=== PATIENT | female | born 1960 | race African-American/Black ===

== ENCOUNTER 2016-12-14 10:25 | Inpatient (IN) | payer OTHER ==
[~2016-12-14] VITALS: Ht 152.4 cm; Wt 74.0 kg
[~2016-12-14 10:25] MED LIST: AMLODIPINE BESYL5 MG PO; BENZTROPINE ME0.5 MG PO; CEFDINIR300 MG PO; COLACE100 MG PO; FENTANYL1 EAC5 TD; GLUCOPHAGE850 MG PO; HUMALOG MI100 UNIT/6 SC; HYDROCHLOROTHIA50 MG PO; INSULIN SYRING1 EA11 MC; INSULIN SYRING1 EA30 MC; LANTUS 10100 UNITS/ SC; LANTUS 10100 UNITS/ SQ; LISINOPRIL40 MG PO; LYRICA150 MG PO; METFORMIN HCL500 MG PO; MIRALAX17 GM PO; MOBIC15 MG PO; NOVOLIN N100 UNITS/ SC; SERTRALINE HCL50 MG PO; TRAZODONE HCL50 MG PO; VENLAFAXINE HCL75 M3 PO; ZOFRAN4 MG PO
[2016-12-14] MEDS ORDERED: ENDOCET 5-3251 EACH PO (12:45)
[2016-12-14] MEDS ORDERED: HYZAAR 100-21 TABLET PO (12:45)
[2016-12-14] MEDS ORDERED: LANTUS 10100 UNITS/ SC (12:46)
[2016-12-14 13:05] LABS: EOSINOPHIL COUNT 0.2 K/uL (0-0.3); IMMATURE GRANULOCYTE (%) 0.4 % (0.0-0.7); IMMATURE GRANULOCYTE COUNT 0.5 K/uL; LYMPHOCYTE COUNT 3.8 K/uL (1.0-2.8); MONOCYTE (%) 5.3 % (3-12); MONOCYTE COUNT 0.6 K/uL (0-0.8); NEUTROPHIL (%) 58.6 % (45-76); NEUTROPHIL COUNT 6.6 K/uL (1.8-6.4)
[2016-12-14 13:15] LABS: PROTHROMBIN TIME 10.6 (9.2-11.2)
[2016-12-14 13:37] LABS: HEMATOCRIT 38.1 % (36.0-46.0); MCH 25.4 PG (29.0-34.0); MCHC 32.3 G/DL (30.0-36.0); MCV 78.7 FL (83-99); PLAT.SUFFICIENCY DECREASED; PLATELET COUNT 148 K/uL (156-360); RBC DIS.WIDTH-CV 12.8 % (11.8-14.6); RBC DIS.WIDTH-SD 35.8 % (39-53); RED BLOOD COUNT 4.84 M/uL (3.80-5.20); USER ID SDF; WHITE BLOOD COUNT 11.3 K/uL (4.1-10.2)
[2016-12-14 13:48] LABS: ANION GAP 9 MEQ/L (2-14); CHLORIDE 105 MEQ/L (99-109); POTASSIUM 4.2 MEQ/L (3.7-5.4); SAMPLE HEMOLYSIS CHECK 0; SAMPLE ICTERIC CHECK 0; SAMPLE LIPEMIA CHECK 0; SODIUM 138 MEQ/L (136-147)
[2016-12-14 13:54] LABS: GFR ESTIMATE (CALCULATED) > 59 mL/min/; GLUCOSE 376 mg/dL (70-99); UREA NITROGEN (BUN) 26 mg/dL (9-23)
[2016-12-14 17:50] VITALS: BP 148/96
[2016-12-14 17:56] VITALS: BP 148/96
[2016-12-14] MEDS ORDERED: LANTUS 10100 UNITS/ SQ (18:02)
[2016-12-14 23:22] VITALS: BP 184/83
[2016-12-15 04:28] VITALS: BP 129/64
[2016-12-15 04:53] LABS: HEMATOCRIT 34.7 % (36.0-46.0); MCV 81.1 FL (83-99)
[2016-12-15 05:17] LABS: CHLORIDE 106 mEq/L (99-109); SODIUM 136 mEq/L (136-147)
[2016-12-15 05:18] LABS: GLUCOSE 248 mg/dL (70-99)
[2016-12-15 05:20] LABS: ANION GAP 8 MEQ/L (2-14)
[2016-12-15 05:22] LABS: GFR ESTIMATE (CALCULATED) > 59 mL/min/
[2016-12-15 05:23] LABS: UREA NITROGEN (BUN) 22 mg/dL (9-23)
[2016-12-15 07:51] VITALS: BP 95/52
[2016-12-15 16:39] VITALS: BP 107/55
[2016-12-15 23:12] VITALS: BP 103/52
[2016-12-16 07:13] LABS: HEMATOCRIT 36.3 % (36.0-46.0)
[2016-12-16 08:39] VITALS: BP 115/63
[2016-12-16] MEDS ORDERED: LOVENOX40 MG/0.4 SC (09:15)
[2016-12-16] MEDS ORDERED: OXYCODONE-APAP1 EACH PO (09:17)
[2016-12-16] MEDS ORDERED: LIDOCAINE700 MG TD (09:17)
[2016-12-16] MEDS ORDERED: ENDOCET 5-3251 EACH PO ×2 (09:24→09:26)
== END 2016-12-16 15:36 | DRG 494 ==
LOC: EME → EDBD 10:25 → EME 10:25 → 2SOUTH 14:04 → 3EAST 14:04 → 2SOUTH 14:04 → EME 14:12 → 3EAST 17:36
PROVIDERS: Emergency Medicine; Orthopaedic Surgery Sports Medicine
DX: S82.851A Displaced trimalleolar fracture of right lower leg, initial encounter for closed fracture (principal); W19.XXXA Unspecified fall, initial encounter; Y92.009 Unspecified place in unspecified non-institutional (private) residence as the place of occurrence of the external cause; E11.42 Type 2 diabetes mellitus with diabetic polyneuropathy; I10 Essential (primary) hypertension; E78.00 Pure hypercholesterolemia, unspecified; F41.9 Anxiety disorder, unspecified
CPT/HCPCS: 71010; 73590; 73600; 73610; 76000; 80048; 82306; 82948; 85014; 85018; 85025; 85610; 93005; 99281; 99285; C1713; G0378; G8987 GO CN; G8988 GO CK; J1170; J1650; J1815; J2250; J2270; J2405; J3010; S0020

== ENCOUNTER 2017-03-18 17:23 | Inpatient (IN) | payer OTHER ==
[~2017-03-18] VITALS: Ht 153.7 cm; Wt 66.8 kg
[~2017-03-18 17:23] MED LIST changes: +ENDOCET 5-3251 EACH PO; +HYZAAR 100-21 TABLET PO; +LIDOCAINE700 MG TD; +LOVENOX40 MG/0.4 SC; +OXYCODONE-APAP1 EACH PO
[2017-03-18 18:26] LABS: ADD MIUA? YES; BILIRUBIN NEGATIVE; BLOOD SMALL; COLOR YELLOW ((YELLOW)); GLUCOSE (STRIP) >=500; KETONES 20; LEUKOCYTES NEGATIVE; NITRITE NEGATIVE; PROTEIN (STRIP) >=500; SPECIFIC GRAVITY 1.025 (1.000-1.030); UROBILINOGEN 0.2 MG/DL (0.2-1.0)
[2017-03-18 18:41] LABS: CHLORIDE 102 mEq/L (99-109); HEMATOCRIT 37.2 % (36.0-46.0); MCH 25.6 PG (29.0-34.0); MCHC 32.8 G/DL (30.0-36.0); MCV 78.2 FL (83-99); MEAN PLAT.VOLUME 12.5 uM^3 (9.5-12.4); PLATELET COUNT 224 K/uL (156-360); POTASSIUM 3.7 mEq/L (3.7-5.4); RBC DIS.WIDTH-CV 14.2 % (11.8-14.6); RBC DIS.WIDTH-SD 40.1 % (39-53); RED BLOOD COUNT 4.76 M/uL (3.80-5.20); SODIUM 141 mEq/L (136-147)
[2017-03-18 18:42] LABS: BACTERIA NONE SEEN /HPF; EPITHELIAL CELLS RARE /HPF; MUCUS TRACE /LPF; RED BLOOD CELLS 15-20 /HPF (0-5); UCUL ADDED? NO; WHITE BLOOD CELLS 0-5 /HPF (0-5)
[2017-03-18 18:44] LABS: ANION GAP 19 MEQ/L (2-14)
[2017-03-18 18:45] LABS: TOTAL BILIRUBIN 0.5 mg/dL (0.0-1.0)
[2017-03-18 18:47] LABS: ALKALINE PHOSPHATASE 82 IU/L (3-129); GFR ESTIMATE (CALCULATED) 55 mL/min/
[2017-03-18 18:48] LABS: UREA NITROGEN (BUN) 25 mg/dL (9-23)
[2017-03-18 18:50] LABS: LIPASE 18 U/L (1.0-51.0)
[2017-03-18 18:53] LABS: TROP-I INTERPRETATION NEGATIVE; TROPONIN-I < 0.01 ng/mL (0.0-0.30)
[2017-03-18 18:57] LABS: QUANTITATIVE HCG < 4.0 MIU/ML
[2017-03-18 19:03] LABS: GLUCOSE 483 mg/dL (70-99)
[2017-03-18 19:43] LABS: BASE EXCESS 2.7 mEq/L (-3 to +3); BICARBONATE 25.9 mEq/L (22-26); CARBOXY HGB 1.8 % (0-5); COMMENTS - BLOOD GASES C+A+; FI02 21 %; METHEMOGLOBIN 1.4 % (0-1.5); O2 FLOW 0 L/MIN; PCO2 34 mm Hg (35-45); PO2 82 mm Hg (80-100); SITE LR; pH 7.49 (7.35-7.45)
[2017-03-18 20:02] LABS: INFLUENZA A VIRAL ANTIGEN NEGATIVE; INFLUENZA B VIRAL ANTIGEN NEGATIVE
[2017-03-18 22:18] LABS: POINT-OF-CARE METER ID UU13113702
[2017-03-19] VITALS (7 sets, daily range): BP systolic 159–197; BP diastolic 74–120
[2017-03-19 00:40] LABS: POINT-OF-CARE METER ID UU13113702
[2017-03-19 02:36] LABS: POINT-OF-CARE METER ID UU13113702
[2017-03-19 02:56] LABS: CHLORIDE 110 mEq/L (99-109); POTASSIUM 3.2 mEq/L (3.7-5.4); SODIUM 146 mEq/L (136-147)
[2017-03-19 02:59] LABS: ANION GAP 14 MEQ/L (2-14); GLUCOSE 196 mg/dL (70-99)
[2017-03-19 03:02] LABS: GFR ESTIMATE (CALCULATED) > 59 mL/min/
[2017-03-19 03:03] LABS: UREA NITROGEN (BUN) 21 mg/dL (9-23)
[2017-03-19 07:30] LABS: POINT-OF-CARE METER ID UU13113702
[2017-03-19] MEDS ORDERED: NORVASC10 MG PO (09:32)
[2017-03-19] MEDS ORDERED: OXYCODONE-ACET1 EACH PO (09:34)
[2017-03-19] MEDS ORDERED: FERROUS SULFAT325 MG PO (09:36)
[2017-03-19] MEDS ORDERED: GLUCOPHAGE500 MG PO (09:37)
[2017-03-19 15:09] LABS: AMPHETAMINES QUANT VALUE 0 NG/ML; BARBITUATES QUANT VALUE 0 NG/ML; BENZODIAZEPINES QUANT VALUE 0 NG/ML; BENZODIAZEPINES, URINE SCREEN Negative (200 ng/mL); MARIJUANA QUANT VALUE 0 NG/ML; OPIATES QUANTITATIVE VALUE 0 NG/ML; PHENCYCLIDINE QUANT VALUE 0 NG/ML
[2017-03-20] VITALS (11 sets, daily range): BP systolic 127–180; BP diastolic 70–94
[2017-03-20 06:27] LABS: POINT-OF-CARE METER ID UU14162508
[2017-03-20 07:58] LABS: HEMATOCRIT 34.1 % (36.0-46.0); MCV 81.4 FL (83-99); MEAN PLAT.VOLUME 12.3 uM^3 (9.5-12.4); PLATELET COUNT 218 K/uL (156-360); RBC DIS.WIDTH-CV 14.6 % (11.8-14.6); RBC DIS.WIDTH-SD 42.9 % (39-53); RED BLOOD COUNT 4.19 M/uL (3.80-5.20); WHITE BLOOD COUNT 14.7 K/uL (4.1-10.2)
[2017-03-20 08:09] LABS: CHLORIDE 112 mEq/L (99-109); POTASSIUM 3.5 mEq/L (3.7-5.4); SODIUM 142 mEq/L (136-147)
[2017-03-20 08:10] LABS: GLUCOSE 211 mg/dL (70-99)
[2017-03-20 08:12] LABS: ANION GAP 11 MEQ/L (2-14)
[2017-03-20 08:14] LABS: GFR ESTIMATE (CALCULATED) > 59 mL/min/
[2017-03-20 08:15] LABS: UREA NITROGEN (BUN) 20 mg/dL (9-23)
[2017-03-21] VITALS (7 sets, daily range): BP systolic 125–199; BP diastolic 68–110
[2017-03-22] VITALS (8 sets, daily range): BP systolic 123–204; BP diastolic 66–100
[2017-03-22 06:12] LABS: HEMATOCRIT 34.9 % (36.0-46.0); MCH 25.6 PG (29.0-34.0); MCHC 32.1 G/DL (30.0-36.0); MCV 79.9 FL (83-99); MEAN PLAT.VOLUME 12.8 uM^3 (9.5-12.4); PLATELET COUNT 209 K/uL (156-360); RBC DIS.WIDTH-CV 13.8 % (11.8-14.6); RBC DIS.WIDTH-SD 40.3 % (39-53); RED BLOOD COUNT 4.37 M/uL (3.80-5.20); WHITE BLOOD COUNT 11.1 K/uL (4.1-10.2)
[2017-03-22 06:29] LABS: POINT-OF-CARE USER ID 609231305
[2017-03-22 06:34] LABS: ANION GAP 10 MEQ/L (2-14); CHLORIDE 105 MEQ/L (99-109); GFR ESTIMATE (CALCULATED) > 59 mL/min/; GLUCOSE 139 mg/dL (70-99); POTASSIUM 3.1 MEQ/L (3.7-5.4); SAMPLE HEMOLYSIS CHECK 0; SAMPLE ICTERIC CHECK 0; SAMPLE LIPEMIA CHECK 0; SODIUM 136 MEQ/L (136-147); UREA NITROGEN (BUN) 14 mg/dL (9-23)
[2017-03-23] VITALS (8 sets, daily range): BP systolic 130–208; BP diastolic 72–100
[2017-03-23 08:20] LABS: Estimated Average Glucose 217 mg/dL (70-123)
[2017-03-23 08:37] LABS: HEMOGLOBIN A1c (GLYCOHEMOGLOB) 9.2 % HGB (Below 5.7)
[2017-03-24 04:47] VITALS: BP 152/74
[2017-03-24 07:15] LABS: POINT-OF-CARE METER ID UU14162508
[2017-03-24 08:00] VITALS: BP 192/94
[2017-03-24 11:35] VITALS: BP 183/86
[2017-03-24 12:43] LABS: POINT-OF-CARE METER ID UU14162508
[2017-03-24 15:46] LABS: ANION GAP 10 MEQ/L (2-14); CHLORIDE 103 MEQ/L (99-109); GFR ESTIMATE (CALCULATED) > 59 mL/min/; GLUCOSE 174 mg/dL (70-99); SAMPLE HEMOLYSIS CHECK 0; SAMPLE ICTERIC CHECK 0; SAMPLE LIPEMIA CHECK 0; SODIUM 137 MEQ/L (136-147); UREA NITROGEN (BUN) 13 mg/dL (9-23)
[2017-03-24 16:00] VITALS: BP 170/80
[2017-03-24 19:09] VITALS: BP 185/84
[2017-03-24 22:24] LABS: POINT-OF-CARE METER ID UU14162508
[2017-03-24 23:28] VITALS: BP 127/60
[2017-03-25 03:12] VITALS: BP 179/91
[2017-03-25 06:27] LABS: BASOPHIL COUNT 0.1 K/uL (0-0.1); EOSINOPHIL (%) 4.6 % (0-5); EOSINOPHIL COUNT 0.6 K/uL (0-0.3); HEMATOCRIT 33.4 % (36.0-46.0); IMMATURE GRANULOCYTE (%) 0.5 % (0.0-0.7); IMMATURE GRANULOCYTE COUNT 0.1 K/uL; INSTRUMENT ABS NEUTROPHIL CT 4.7 K/uL; LYMPHOCYTE COUNT 5.6 K/uL (1.0-2.8); MCH 25.5 PG (29.0-34.0); MCV 79.5 FL (83-99); MEAN PLAT.VOLUME 12.6 uM^3 (9.5-12.4); MONOCYTE (%) 8.3 % (3-12); NEUTROPHIL (%) 39.4 % (45-76); NEUTROPHIL COUNT 4.7 K/uL (1.8-6.4); PLATELET COUNT 227 K/uL (156-360); RBC DIS.WIDTH-CV 14.1 % (11.8-14.6); RBC DIS.WIDTH-SD 40.2 % (39-53); WHITE BLOOD COUNT 11.9 K/uL (4.1-10.2)
[2017-03-25 06:37] LABS: POINT-OF-CARE METER ID UU14162508
[2017-03-25 06:54] LABS: ANION GAP 7 MEQ/L (2-14); CHLORIDE 105 MEQ/L (99-109); GFR ESTIMATE (CALCULATED) > 59 mL/min/; POTASSIUM 2.8 MEQ/L (3.7-5.4); SAMPLE HEMOLYSIS CHECK 0; SAMPLE ICTERIC CHECK 0; SAMPLE LIPEMIA CHECK 0; SODIUM 138 MEQ/L (136-147); UREA NITROGEN (BUN) 13 mg/dL (9-23)
[2017-03-25 06:55] LABS: GLUCOSE 73 mg/dL (70-99)
[2017-03-25 08:41] VITALS: BP 180/82
[2017-03-25 11:46] LABS: POINT-OF-CARE METER ID UU14162508
[2017-03-25 17:11] LABS: POINT-OF-CARE METER ID UU14162508
[2017-03-25 21:56] LABS: POINT-OF-CARE METER ID UU14162508
[2017-03-26 07:08] VITALS: BP 140/75
[2017-03-26 09:50] LABS: POINT-OF-CARE METER ID UU14162508
[2017-03-26 12:06] LABS: POINT-OF-CARE METER ID UU14162508
[2017-03-26] MEDS ORDERED: APRESOLINE10 MG PO (12:50)
[2017-03-26] MEDS ORDERED: METOPROLOL TART75 MG PO (12:50)
[2017-03-26] MEDS ORDERED: MIRTAZAPINE30 MG PO (12:51)
[2017-03-26] MEDS ORDERED: LOSARTAN POTAS100 MG PO (12:51)
[2017-03-26] MEDS ORDERED: ALPRAZOLAM0.25 M2 PO (12:52)
[2017-03-26] MEDS ORDERED: VENLAFAXINE HC150 M1 PO (12:52)
[2017-03-26] MEDS ORDERED: TRAZODONE HCL50 MG PO (12:52)
[2017-03-26] MEDS ORDERED: SENNA PLUS TAB1 EACH PO (12:53)
[2017-03-26] MEDS ORDERED: BISACODYL5 MG PO (12:53)
[2017-03-26] MEDS ORDERED: METOCLOPRAMIDE H5 MG PO (12:53)
[2017-03-26] MEDS ORDERED: MILK OF MAGNESI10 ML PO (12:53)
[2017-03-26] MEDS ORDERED: PEPCID20 MG PO (13:14)
[2017-03-26 15:56] VITALS: BP 96/55
[2017-03-26 16:10] LABS: POINT-OF-CARE METER ID UU14162508
[2017-03-26] MEDS ORDERED: VENLAFAXINE H37.5 MG PO (19:34)
[2017-03-26] MEDS ORDERED: OXYCODONE HCL10 MG PO (19:39)
[2017-03-26] MEDS ORDERED: OXYCODONE HCL5 MG PO (19:40)
== END 2017-03-26 18:12 | DRG 74 ==
LOC: EME 17:23 → EDOF 03-19 03:37 → 2EAST 03-19 03:37
PROVIDERS: Emergency Medicine; Hospitalist; Internal Medicine; Nurse Practitioner Family; Student in an Organized Health Care Education/Training Program
DX: E11.43 Type 2 diabetes mellitus with diabetic autonomic (poly)neuropathy (principal); E11.65 Type 2 diabetes mellitus with hyperglycemia; I16.0 Hypertensive urgency; E87.6 Hypokalemia; F32.9 Major depressive disorder, single episode, unspecified; K52.9 Noninfective gastroenteritis and colitis, unspecified; K31.84 Gastroparesis; Z91.14 Patient's other noncompliance with medication regimen; G89.29 Other chronic pain; N17.9 Acute kidney failure, unspecified; D72.829 Elevated white blood cell count, unspecified; K59.00 Constipation, unspecified; R45.84 Anhedonia; R25.8 Other abnormal involuntary movements; R63.4 Abnormal weight loss; F33.2 Major depressive disorder, recurrent severe without psychotic features; E78.5 Hyperlipidemia, unspecified; F41.9 Anxiety disorder, unspecified; E86.0 Dehydration; E11.42 Type 2 diabetes mellitus with diabetic polyneuropathy; Z79.4 Long term (current) use of insulin; G89.4 Chronic pain syndrome; I10 Essential (primary) hypertension; I95.1 Orthostatic hypotension; G43.A1 Cyclical vomiting, in migraine, intractable; K29.60 Other gastritis without bleeding; K42.9 Umbilical hernia without obstruction or gangrene; R00.0 Tachycardia, unspecified
CPT/HCPCS: 36600; 70450; 71020; 74176; 80048; 80053; 80306 90; 81003; 82010; 82803; 82948; 83036; 83605; 83690; 84132; 84443; 84484; 84702; 85025; 85027; 87502; 93005; 99281; 99285; G0378; J1644; J1815; J2060; J2405; J2765; J3480; J7030; J7042; S0028

== ENCOUNTER 2017-03-26 16:41 | Inpatient (IN) | payer OTHER ==
[~2017-03-26] VITALS: Ht 153.7 cm; Wt 60.5 kg
[~2017-03-26 16:41] MED LIST changes: +ALPRAZOLAM0.25 M2 PO; +APRESOLINE10 MG PO; +BISACODYL5 MG PO; +FERROUS SULFAT325 MG PO; +GLUCOPHAGE500 MG PO; +LOSARTAN POTAS100 MG PO; +METOCLOPRAMIDE H5 MG PO; +METOPROLOL TART75 MG PO; +MILK OF MAGNESI10 ML PO; +MIRTAZAPINE30 MG PO; +NORVASC10 MG PO; +OXYCODONE-ACET1 EACH PO; +PEPCID20 MG PO; +SENNA PLUS TAB1 EACH PO; +VENLAFAXINE HC150 M1 PO
[2017-03-26 19:21] VITALS: BP 100/62
[2017-03-26] MEDS ORDERED: VENLAFAXINE H37.5 MG PO (19:34)
[2017-03-26] MEDS ORDERED: OXYCODONE HCL10 MG PO (19:39)
[2017-03-26] MEDS ORDERED: OXYCODONE HCL5 MG PO (19:40)
[2017-03-27 07:15] LABS: POINT-OF-CARE METER ID UU13113830
[2017-03-27 21:00] VITALS: BP 132/65
[2017-03-28 07:45] VITALS: BP 157/82
[2017-03-28 15:29] VITALS: BP 116/64
[2017-03-29 07:37] VITALS: BP 139/64
[2017-03-29 15:30] VITALS: BP 163/82
[2017-03-30 07:37] VITALS: BP 159/71
[2017-03-30 15:45] VITALS: BP 120/72
[2017-03-31 15:23] VITALS: BP 157/96
[2017-04-01 07:31] VITALS: BP 150/74
[2017-04-01] MEDS ORDERED: VENLAFAXINE HC150 M1 PO (09:44)
[2017-04-01] MEDS ORDERED: MIRTAZAPINE30 MG PO (09:44)
[2017-04-01] MEDS ORDERED: TRAZODONE HCL50 MG PO (09:44)
== END 2017-04-01 13:09 | disposition home or self-care (01) | DRG 885 ==
LOC: 1WEST 16:41
PROVIDERS: Psychiatry & Neurology Psychiatry
DX: F32.1 Major depressive disorder, single episode, moderate (principal); F50.89 Other specified eating disorder; E11.22 Type 2 diabetes mellitus with diabetic chronic kidney disease; R62.7 Adult failure to thrive; I12.9 Hypertensive chronic kidney disease with stage 1 through stage 4 chronic kidney disease, or unspecified chronic kidney disease; N18.9 Chronic kidney disease, unspecified; G89.29 Other chronic pain; E78.5 Hyperlipidemia, unspecified; G47.10 Hypersomnia, unspecified
CPT/HCPCS: 80048; 82948; 97150 GO; 97165 GO

== ENCOUNTER 2017-07-13 03:58 | Emergency (ER) | payer OTHER ==
[~2017-07-13] VITALS: Ht 172.7 cm; Wt 69.8 kg
[~2017-07-13 03:58] MED LIST changes: +OXYCODONE HCL10 MG PO; +OXYCODONE HCL5 MG PO; +VENLAFAXINE H37.5 MG PO
[2017-07-13 04:33] LABS: ADD MIUA? YES; BILIRUBIN NEGATIVE; BLOOD MODERATE; COLOR STRAW ((YELLOW)); GLUCOSE (STRIP) >=500; KETONES NEGATIVE; LEUKOCYTES TRACE; NITRITE NEGATIVE; PROTEIN (STRIP) >=500; SPECIFIC GRAVITY 1.014 (1.000-1.030); UROBILINOGEN 0.2 MG/DL (0.2-1.0)
[2017-07-13 05:03] LABS: HEMATOCRIT 29.8 % (36.0-46.0); MCH 25.6 PG (29.0-34.0); MCHC 32.6 G/DL (30.0-36.0); MCV 78.6 FL (83-99); MEAN PLAT.VOLUME 13.4 uM^3 (9.5-12.4); PLATELET COUNT 165 K/uL (156-360); RBC DIS.WIDTH-CV 12.7 % (11.8-14.6); RBC DIS.WIDTH-SD 36.1 % (39-53); RED BLOOD COUNT 3.79 M/uL (3.80-5.20); WHITE BLOOD COUNT 12.2 K/uL (4.1-10.2)
[2017-07-13 05:14] LABS: CHLORIDE 103 mEq/L (99-109); POTASSIUM 3.4 mEq/L (3.7-5.4); SODIUM 136 mEq/L (136-147)
[2017-07-13 05:17] LABS: ANION GAP 8 MEQ/L (2-14)
[2017-07-13 05:18] LABS: TOTAL BILIRUBIN 0.3 mg/dL (0.0-1.0)
[2017-07-13 05:20] LABS: ALKALINE PHOSPHATASE 80 IU/L (3-129); GFR ESTIMATE (CALCULATED) > 59 mL/min/
[2017-07-13 05:21] LABS: UREA NITROGEN (BUN) 23 mg/dL (9-23)
[2017-07-13 05:23] LABS: LIPASE 88 U/L (1.0-51.0)
[2017-07-13 05:24] LABS: EPITHELIAL CELLS RARE /HPF; MUCUS NONE SEEN /LPF; RED BLOOD CELLS 30-40 /HPF (0-5); WHITE BLOOD CELLS 15-20 /HPF (0-5)
[2017-07-13 05:25] LABS: BACTERIA 1+ /HPF; CASTS NONE SEEN /LPF; CRYSTALS NONE SEEN; UCUL ADDED? YES
[2017-07-13 05:37] LABS: GLUCOSE 430 mg/dL (70-99)
[2017-07-13 06:16] LABS: CARBON DIOXIDE (BICARBONATE) 24.9 MEQ/L (20-31)
[2017-07-13] MEDS ORDERED: VANTIN100 MG PO (06:20)
[2017-07-13] MEDS ORDERED: ZOFRAN8 MG PO (06:20)
[2017-07-13 06:40] LABS: POINT-OF-CARE METER ID UU13113702
[2017-07-13 07:31] LABS: POINT-OF-CARE METER ID UU13113702
[2017-07-13 07:35] VITALS: BP 146/82
[2017-07-13] MEDS ORDERED: BACTRIM,SEPT1 TABLET PO (09:38)
== END 2017-07-13 07:54 | disposition home or self-care (01) ==
LOC: EME → EDBD 03:58 → EME 07:54
PROVIDERS: Emergency Medicine
DX: N39.0 Urinary tract infection, site not specified (principal); E11.65 Type 2 diabetes mellitus with hyperglycemia; Z79.84 Long term (current) use of oral hypoglycemic drugs; Z88.0 Allergy status to penicillin
CPT/HCPCS: 74177; 80053; 81003; 82010; 82803; 82948; 83605; 83690; 85027; 87040; 87086; 99281; 99285; J0360; J0696; J2270; J2405; J7030; J7050

== ENCOUNTER 2017-07-13 09:03 | Emergency (ER) | payer OTHER ==
[~2017-07-13] VITALS: Ht 152.4 cm; Wt 64.5 kg
[~2017-07-13 09:03] MED LIST changes: +VANTIN100 MG PO; +ZOFRAN8 MG PO
[2017-07-13] MEDS ORDERED: BACTRIM,SEPT1 TABLET PO (09:38)
[2017-07-13 09:53] VITALS: BP 175/86
== END 2017-07-13 09:56 | disposition home or self-care (01) ==
LOC: EME 09:03
DX: N39.0 Urinary tract infection, site not specified (principal); I10 Essential (primary) hypertension; E11.9 Type 2 diabetes mellitus without complications; Z79.84 Long term (current) use of oral hypoglycemic drugs; K21.9 Gastro-esophageal reflux disease without esophagitis; F32.9 Major depressive disorder, single episode, unspecified; F41.9 Anxiety disorder, unspecified; Z88.0 Allergy status to penicillin
CPT/HCPCS: 99281; 99283

== ENCOUNTER 2017-10-20 11:04 | Inpatient (IN) | payer OTHER ==
[~2017-10-20] VITALS: Ht 152.4 cm; Wt 67.0 kg
[~2017-10-20 11:04] MED LIST changes: +BACTRIM,SEPT1 TABLET PO; -NORVASC10 MG PO
[2017-10-20 12:24] LABS: EOSINOPHIL (%) 0.1 % (0-5); HEMATOCRIT 41.5 % (36.0-46.0); IMMATURE GRANULOCYTE (%) 0.3 % (0.0-0.7); INSTRUMENT ABS NEUTROPHIL CT 7.6 K/uL; LYMPHOCYTE COUNT 1.4 K/uL (1.0-2.8); MCH 24.9 PG (29.0-34.0); MCHC 31.6 G/DL (30.0-36.0); MCV 78.9 FL (83-99); MONOCYTE (%) 7.9 % (3-12); MONOCYTE COUNT 0.8 K/uL (0-0.8); NEUTROPHIL (%) 77.2 % (45-76); NEUTROPHIL COUNT 7.6 K/uL (1.8-6.4); PLATELET COUNT 209 K/uL (156-360); RBC DIS.WIDTH-CV 13.8 % (11.8-14.6); RBC DIS.WIDTH-SD 38.4 % (39-53); RED BLOOD COUNT 5.26 M/uL (3.80-5.20); WHITE BLOOD COUNT 9.8 K/uL (4.1-10.2)
[2017-10-20 12:54] LABS: INTER. NORMALIZED RATIO 1.1; PROTHROMBIN TIME 12.8 SEC (10.2-12.9)
[2017-10-20 12:57] LABS: PTT 28.5 SEC (25-37)
[2017-10-20 13:01] LABS: CHLORIDE 108 mEq/L (99-109); SODIUM 140 mEq/L (136-147)
[2017-10-20 13:04] LABS: ANION GAP 8 MEQ/L (2-14)
[2017-10-20 13:05] LABS: TOTAL BILIRUBIN 0.4 mg/dL (0.0-1.0)
[2017-10-20 13:06] LABS: ALKALINE PHOSPHATASE 76 IU/L (3-129)
[2017-10-20 13:07] LABS: GFR ESTIMATE (CALCULATED) 46 mL/min/
[2017-10-20 13:08] LABS: POTASSIUM 2.4 mEq/L (3.7-5.4); UREA NITROGEN (BUN) 18 mg/dL (9-23)
[2017-10-20 13:09] LABS: TROP-I INTERPRETATION NEGATIVE; TROPONIN-I 0.06 ng/mL (0.0-0.30)
[2017-10-20 13:10] LABS: TOTAL CK 1267 IU/L (1-294)
[2017-10-20 13:11] LABS: GLUCOSE 406 mg/dL (70-99)
[2017-10-20 13:26] LABS: CREATINE KINASE 1267 IU/L (1-294)
[2017-10-20 13:51] LABS: POINT-OF-CARE METER ID UU13113702
[2017-10-20 14:50] LABS: MAGNESIUM 1.6 mg/dL (1.3-2.7)
[2017-10-20 15:59] VITALS: BP 169/71
[2017-10-20] MEDS ORDERED: NORVASC10 MG PO (16:27)
[2017-10-20] MEDS ORDERED: LYRICA150 MG PO (16:27)
[2017-10-20] MEDS ORDERED: ATORVASTATIN CA40 MG PO (16:29)
[2017-10-20] MEDS ORDERED: FUROSEMIDE20 MG PO (16:31)
[2017-10-20] MEDS ORDERED: FERROUS SULFAT325 MG PO (16:31)
[2017-10-20] MEDS ORDERED: LOSARTAN-HCTZ1 EAC1 PO (16:32)
[2017-10-20] MEDS ORDERED: NOVOLOG MI100 UNIT/2 SC (16:33)
[2017-10-20] MEDS ORDERED: METOPROLOL SUC100 MG PO (16:33)
[2017-10-20] MEDS ORDERED: ASCORBIC ACID250 MG PO (16:35)
[2017-10-20] MEDS ORDERED: ADULT LOW DOSE81 M1 PO (16:36)
[2017-10-20] MEDS ORDERED: SERTRALINE HCL50 MG PO (16:37)
[2017-10-20] MEDS ORDERED: VENLAFAXINE HCL75 M1 PO (16:38)
[2017-10-20] MEDS ORDERED: TRAZODONE HCL50 MG PO (16:38)
[2017-10-20] MEDS ORDERED: PERCOCET 7.51 TABLET PO (16:39)
[2017-10-20] MEDS ORDERED: LIDODERM 5% P1 PATCH TD (16:41)
[2017-10-20 17:54] LABS: POINT-OF-CARE METER ID UU14188625
[2017-10-20 21:47] LABS: POINT-OF-CARE METER ID UU14174225
[2017-10-20 23:38] VITALS: BP 148/74
[2017-10-21 06:24] LABS: HEMATOCRIT 33.1 % (36.0-46.0); MCH 25.1 PG (29.0-34.0); MCHC 31.1 G/DL (30.0-36.0); MCV 80.5 FL (83-99); RBC DIS.WIDTH-CV 13.2 % (11.8-14.6); RBC DIS.WIDTH-SD 38.4 % (39-53); RED BLOOD COUNT 4.11 M/uL (3.80-5.20); WHITE BLOOD COUNT 9.6 K/uL (4.1-10.2)
[2017-10-21 06:30] LABS: TROP-I INTERPRETATION NEGATIVE; TROPONIN-I 0.03 ng/mL (0.0-0.30)
[2017-10-21 06:56] LABS: PLATELET COUNT 132 K/uL (156-360)
[2017-10-21 06:58] VITALS: BP 171/82
[2017-10-21 06:58] LABS: ANION GAP 6 MEQ/L (2-14); CHLORIDE 110 MEQ/L (99-109); GFR ESTIMATE (CALCULATED) 46 mL/min/; SAMPLE HEMOLYSIS CHECK 0; SAMPLE ICTERIC CHECK 0; SAMPLE LIPEMIA CHECK 0; SODIUM 140 MEQ/L (136-147); UREA NITROGEN (BUN) 18 mg/dL (9-23)
[2017-10-21 07:06] LABS: GLUCOSE 199 mg/dL (70-99); POTASSIUM 2.9 MEQ/L (3.7-5.4)
[2017-10-21 07:18] LABS: POINT-OF-CARE METER ID UU14174225
[2017-10-21 08:12] LABS: CREATINE KINASE 552 IU/L (1-294); MAGNESIUM 1.7 mg/dl (1.3-2.7)
[2017-10-21 09:03] LABS: ADD MIUA? YES; BILIRUBIN NEGATIVE; BLOOD MODERATE; COLOR AMBER ((YELLOW)); GLUCOSE (STRIP) >=500; KETONES 5; LEUKOCYTES LARGE; NITRITE NEGATIVE; PROTEIN (STRIP) >=500; SPECIFIC GRAVITY 1.018 (1.000-1.030); UROBILINOGEN 0.2 MG/DL (0.2-1.0)
[2017-10-21 09:20] LABS: WHITE BLOOD CELLS TNTC /HPF (0-5)
[2017-10-21 11:10] LABS: POINT-OF-CARE METER ID UU14174225
[2017-10-21 11:18] VITALS: BP 181/86
[2017-10-21] MEDS ORDERED: NOVOLOG MI100 UNIT/3 SQ (11:18)
[2017-10-21] MEDS ORDERED: VITAMIN D400 UNIT PO (11:20)
[2017-10-21 11:26] LABS: Estimated Average Glucose 378 mg/dL (70-123); HEMOGLOBIN A1c (GLYCOHEMOGLOB) 14.8 % HGB (Below 5.7)
[2017-10-21 15:12] VITALS: BP 164/74
[2017-10-21 16:10] LABS: POINT-OF-CARE METER ID UU14188625
[2017-10-21 19:26] VITALS: BP 115/56
[2017-10-21 21:24] LABS: POINT-OF-CARE METER ID UU14188625
[2017-10-21 23:39] VITALS: BP 103/56
[2017-10-22 03:44] VITALS: BP 119/64
[2017-10-22 06:52] LABS: ANION GAP 7 MEQ/L (2-14); CHLORIDE 106 MEQ/L (99-109); GFR ESTIMATE (CALCULATED) 38 mL/min/; POTASSIUM 3.2 MEQ/L (3.7-5.4); SAMPLE HEMOLYSIS CHECK 0; SAMPLE ICTERIC CHECK 0; SAMPLE LIPEMIA CHECK 0; SODIUM 136 MEQ/L (136-147); UREA NITROGEN (BUN) 23 mg/dL (9-23)
[2017-10-22 06:54] LABS: GLUCOSE 57 mg/dL (70-99)
[2017-10-22 07:16] LABS: HEMATOCRIT 31.9 % (36.0-46.0); MCH 25.5 PG (29.0-34.0); MCHC 31.3 G/DL (30.0-36.0); MCV 81.4 FL (83-99); PLAT.SUFFICIENCY DECREASED; PLATELET COUNT 130 K/uL (156-360); RBC DIS.WIDTH-CV 13.6 % (11.8-14.6); RBC DIS.WIDTH-SD 40.6 % (39-53); RED BLOOD COUNT 3.92 M/uL (3.80-5.20); WHITE BLOOD COUNT 9.6 K/uL (4.1-10.2)
[2017-10-22 07:39] LABS: POINT-OF-CARE METER ID UU14188625
[2017-10-22 07:51] VITALS: BP 111/861
[2017-10-22 12:00] VITALS: BP 135/70
[2017-10-22 12:20] LABS: POINT-OF-CARE METER ID UU14174225
[2017-10-22 12:58] LABS: POINT-OF-CARE METER ID UU14188625
[2017-10-22 13:19] LABS: POINT-OF-CARE METER ID UU14188625
[2017-10-22 14:14] LABS: POINT-OF-CARE METER ID UU14188625
[2017-10-22 16:00] VITALS: BP 112/56
[2017-10-22 17:57] LABS: POINT-OF-CARE METER ID UU14188625
[2017-10-22 19:58] VITALS: BP 146/76
[2017-10-22 21:03] LABS: POINT-OF-CARE METER ID UU14188625
[2017-10-22 23:35] VITALS: BP 117/65
[2017-10-23] VITALS (7 sets, daily range): BP systolic 92–146; BP diastolic 60–81
[2017-10-23 07:18] LABS: POINT-OF-CARE METER ID UU14188625
[2017-10-23 07:28] LABS: ANION GAP 6 MEQ/L (2-14); CHLORIDE 110 MEQ/L (99-109); CREATINE KINASE 141 IU/L (1-294); GFR ESTIMATE (CALCULATED) 35 mL/min/; GLUCOSE 55 mg/dL (70-99); SAMPLE HEMOLYSIS CHECK 0; SAMPLE ICTERIC CHECK 0; SAMPLE LIPEMIA CHECK 0; SODIUM 137 MEQ/L (136-147); UREA NITROGEN (BUN) 29 mg/dL (9-23)
[2017-10-23 07:29] LABS: POTASSIUM 4.3 MEQ/L (3.7-5.4)
[2017-10-23 07:48] LABS: POINT-OF-CARE METER ID UU14174225
[2017-10-23 08:11] LABS: POINT-OF-CARE METER ID UU14174225
[2017-10-23 12:25] LABS: POINT-OF-CARE METER ID UU13113717
[2017-10-23 21:39] LABS: POINT-OF-CARE METER ID UU13113717
[2017-10-24 04:00] VITALS: BP 136/74
[2017-10-24 07:45] LABS: ANION GAP 6 MEQ/L (2-14); CHLORIDE 109 MEQ/L (99-109); GFR ESTIMATE (CALCULATED) 38 mL/min/; POTASSIUM 4.3 MEQ/L (3.7-5.4); SAMPLE HEMOLYSIS CHECK 0; SAMPLE ICTERIC CHECK 0; SAMPLE LIPEMIA CHECK 0; SODIUM 136 MEQ/L (136-147); UREA NITROGEN (BUN) 31 mg/dL (9-23)
[2017-10-24 07:52] VITALS: BP 137/80
[2017-10-24 07:54] LABS: GLUCOSE 95 mg/dL (70-99)
[2017-10-24 08:39] LABS: POINT-OF-CARE METER ID UU13113717
[2017-10-24 12:11] VITALS: BP 134/78
[2017-10-24 12:11] LABS: POINT-OF-CARE METER ID UU14174225
[2017-10-24 16:18] VITALS: BP 135/69
[2017-10-24 17:41] LABS: POINT-OF-CARE METER ID UU13113717
[2017-10-24 19:46] VITALS: BP 142/73
[2017-10-24 21:39] LABS: POINT-OF-CARE METER ID UU14188625
[2017-10-24 23:51] VITALS: BP 146/75
[2017-10-25 03:56] VITALS: BP 190/90
[2017-10-25 07:22] VITALS: BP 169/87
[2017-10-25 08:41] LABS: POINT-OF-CARE METER ID UU14174225
[2017-10-25 11:38] LABS: POINT-OF-CARE METER ID UU14174225
[2017-10-25 11:50] VITALS: BP 150/79
[2017-10-25 16:21] VITALS: BP 149/80
[2017-10-25 16:38] LABS: POINT-OF-CARE METER ID UU14188625
[2017-10-25 19:43] VITALS: BP 194/86
[2017-10-25 21:48] LABS: POINT-OF-CARE METER ID UU14174225
[2017-10-25 21:48] LABS: POINT-OF-CARE METER ID UU14174225
[2017-10-25 21:49] LABS: POINT-OF-CARE METER ID UU14174225
[2017-10-25 23:38] VITALS: BP 179/85
[2017-10-26 07:05] LABS: ANION GAP 7 MEQ/L (2-14); CHLORIDE 110 MEQ/L (99-109); GFR ESTIMATE (CALCULATED) > 59 mL/min/; POTASSIUM 3.8 MEQ/L (3.7-5.4); SAMPLE HEMOLYSIS CHECK 0; SAMPLE ICTERIC CHECK 0; SAMPLE LIPEMIA CHECK 0; SODIUM 140 MEQ/L (136-147); UREA NITROGEN (BUN) 24 mg/dL (9-23)
[2017-10-26 07:06] LABS: GLUCOSE 171 mg/dL (70-99)
[2017-10-26 07:56] VITALS: BP 193/83
[2017-10-26 11:50] LABS: POINT-OF-CARE METER ID UU14174225
[2017-10-26 15:20] LABS: UR CREATININE CONCENTRATION 20.5 MG/DL
[2017-10-26 16:15] LABS: POINT-OF-CARE METER ID UU14174225
[2017-10-26 16:30] VITALS: BP 194/91
[2017-10-26 21:08] LABS: POINT-OF-CARE METER ID UU13113717
[2017-10-27 00:01] VITALS: BP 1388/64
[2017-10-27 07:45] VITALS: BP 189/89
[2017-10-27 07:50] LABS: POINT-OF-CARE METER ID UU14174225
[2017-10-27] MEDS ORDERED: LYRICA75 MG PO (09:02)
[2017-10-27] MEDS ORDERED: NOVOLOG MI100 UNIT/3 SC ×2 (09:03→09:04)
[2017-10-27] MEDS ORDERED: NOVOLOG PE100 UNITS/ SC (09:04)
[2017-10-27 12:37] LABS: POINT-OF-CARE METER ID UU14174225
[2017-10-27 15:14] VITALS: BP 172/85
[2017-10-27 16:59] LABS: POINT-OF-CARE METER ID UU13113717
[2017-10-27 21:29] LABS: POINT-OF-CARE METER ID UU14174225
[2017-10-28] VITALS: BP 173/71
[2017-10-28 07:28] VITALS: BP 197/81
[2017-10-28 07:29] LABS: POINT-OF-CARE METER ID UU14174225
[2017-10-28 09:56] LABS: BASOPHIL COUNT 0.1 K/uL (0-0.1); EOSINOPHIL (%) 2.6 % (0-5); EOSINOPHIL COUNT 0.3 K/uL (0-0.3); HEMATOCRIT 35.8 % (36.0-46.0); IMMATURE GRANULOCYTE COUNT 0.4 K/uL; INSTRUMENT ABS NEUTROPHIL CT 5.2 K/uL; LYMPHOCYTE COUNT 4.2 K/uL (1.0-2.8); MCH 24.6 PG (29.0-34.0); MCHC 31.3 G/DL (30.0-36.0); MCV 78.7 FL (83-99); MEAN PLAT.VOLUME 13.2 uM^3 (9.5-12.4); MONOCYTE (%) 7.2 % (3-12); MONOCYTE COUNT 0.8 K/uL (0-0.8); NEUTROPHIL (%) 47.2 % (45-76); NEUTROPHIL COUNT 5.2 K/uL (1.8-6.4); RBC DIS.WIDTH-CV 13.3 % (11.8-14.6); RBC DIS.WIDTH-SD 37.6 % (39-53); RED BLOOD COUNT 4.55 M/uL (3.80-5.20)
[2017-10-28 10:15] LABS: ANION GAP 7 MEQ/L (2-14); C3 COMPLEMENT 155 MG/DL (58-170); C4 COMPLEMENT 59 MG/DL (10-40); CHLORIDE 106 MEQ/L (99-109); GFR ESTIMATE (CALCULATED) > 59 mL/min/; GLUCOSE 130 mg/dL (70-99); POTASSIUM 3.4 MEQ/L (3.7-5.4); SAMPLE HEMOLYSIS CHECK 0; SAMPLE ICTERIC CHECK 0; SAMPLE LIPEMIA CHECK 0; SODIUM 141 MEQ/L (136-147); UREA NITROGEN (BUN) 14 mg/dL (9-23)
[2017-10-28 10:17] LABS: PLATELET COUNT 224 K/uL (156-360)
[2017-10-28 11:06] LABS: HBSG INDEX 0.15
[2017-10-28 11:07] LABS: ANTI-HEPATITIS A VIRUS (IGM) Nonreactive; HAV INDEX 0.17; HPCA INDEX 0.21
[2017-10-28 11:08] LABS: ANTI-HEPATITIS B CORE (IGM) Nonreactive; HBC IgM INDEX 0.09
[2017-10-28 11:09] LABS: HIV INDEX 0.07; HIV-1/2 AB/AG COMBO Nonreactive
[2017-10-28 11:45] LABS: POINT-OF-CARE METER ID UU14174225
[2017-10-28 16:14] VITALS: BP 183/91
[2017-10-28 16:37] LABS: UR CREATININE CONCENTRATION 45.7 MG/DL
[2017-10-28 16:53] LABS: POINT-OF-CARE METER ID UU13113717
[2017-10-28 21:01] VITALS: BP 200/100
[2017-10-28 21:03] LABS: POINT-OF-CARE METER ID UU14174225
[2017-10-28 22:12] VITALS: BP 150/70
[2017-10-28 23:44] VITALS: BP 138/69
[2017-10-29 07:55] VITALS: BP 112/62; BP 193/90
[2017-10-29 08:33] LABS: POINT-OF-CARE METER ID UU13113717
[2017-10-29 12:47] LABS: POINT-OF-CARE METER ID UU14174225
[2017-10-29] MEDS ORDERED: NIFEDIPINE ER30 MG PO (14:01)
[2017-10-29] MEDS ORDERED: DOCUSATE SODIU100 MG PO (14:01)
[2017-10-29] MEDS ORDERED: LISINOPRIL20 MG PO (14:01)
[2017-10-29] MEDS ORDERED: MONUROL SACHET 33 GM PO (14:01)
[2017-10-29] MEDS ORDERED: APRESOLINE100 MG PO (14:01)
[2017-10-29 15:45] VITALS: BP 197/90
[2017-10-30 13:29] LABS: Neutrophil Cytoplasmic Aby Negative (Negative)
== END 2017-10-29 16:07 | DRG 558 ==
LOC: EME 11:04 → EDOF 13:42 → 5SOUTH 13:42 → ENRESERV 13:46 → 5SOUTH 15:17
PROVIDERS: Emergency Medicine; Hospitalist; Internal Medicine; Internal Medicine Nephrology; Physician Assistant
DX: M62.82 Rhabdomyolysis (principal); N30.00 Acute cystitis without hematuria; F33.9 Major depressive disorder, recurrent, unspecified; R32 Unspecified urinary incontinence; N18.3 Chronic kidney disease, stage 3 (moderate); K59.00 Constipation, unspecified; K21.9 Gastro-esophageal reflux disease without esophagitis; I16.0 Hypertensive urgency; I12.9 Hypertensive chronic kidney disease with stage 1 through stage 4 chronic kidney disease, or unspecified chronic kidney disease; W19.XXXA Unspecified fall, initial encounter; F41.9 Anxiety disorder, unspecified; E87.6 Hypokalemia; E86.0 Dehydration; E83.42 Hypomagnesemia; E78.5 Hyperlipidemia, unspecified; E11.65 Type 2 diabetes mellitus with hyperglycemia; D63.1 Anemia in chronic kidney disease; E11.21 Type 2 diabetes mellitus with diabetic nephropathy; E11.22 Type 2 diabetes mellitus with diabetic chronic kidney disease; E11.319 Type 2 diabetes mellitus with unspecified diabetic retinopathy without macular edema; E11.40 Type 2 diabetes mellitus with diabetic neuropathy, unspecified; E11.649 Type 2 diabetes mellitus with hypoglycemia without coma; E88.09 Other disorders of plasma-protein metabolism, not elsewhere classified; G25.3 Myoclonus; B95.2 Enterococcus as the cause of diseases classified elsewhere; T42.6X5A Adverse effect of other antiepileptic and sedative-hypnotic drugs, initial encounter; E66.9 Obesity, unspecified; R33.9 Retention of urine, unspecified; Z68.28 Body mass index [BMI] 28.0-28.9, adult; Y92.009 Unspecified place in unspecified non-institutional (private) residence as the place of occurrence of the external cause; Z60.2 Problems related to living alone; Z88.0 Allergy status to penicillin; Z90.710 Acquired absence of both cervix and uterus; Z83.3 Family history of diabetes mellitus
CPT/HCPCS: 70450; 71010; 74000; 76770; 80048; 80053; 80069; 80074; 81003; 81050; 82550; 82553; 82570; 82948; 83036; 83605; 83735; 84156; 84484; 85025; 85027; 85610; 85730; 86021 90; 86038; 86160; 86703; 87077; 87086; 87186; 93005; 97530 GO; 99281; 99285; J0696; J1650; J1815; J2405; J3475; J3480; J7030; J7120

== ENCOUNTER 2018-02-14 02:37 | Emergency (ER) | payer SELFPAY ==
[~2018-02-14] VITALS: Ht 160 cm; Wt 66.5 kg
[~2018-02-14 02:37] MED LIST changes: +ADULT LOW DOSE81 M1 PO; +APRESOLINE100 MG PO; +ASCORBIC ACID250 MG PO; +ATORVASTATIN CA40 MG PO; +DOCUSATE SODIU100 MG PO; +FUROSEMIDE20 MG PO; +LIDODERM 5% P1 PATCH TD; +LISINOPRIL20 MG PO; +LOSARTAN-HCTZ1 EAC1 PO; +LYRICA75 MG PO; +METOPROLOL SUC100 MG PO; +MONUROL SACHET 33 GM PO; +NIFEDIPINE ER30 MG PO; +NORVASC10 MG PO; +NOVOLOG MI100 UNIT/2 SC; +NOVOLOG MI100 UNIT/3 SC; +NOVOLOG MI100 UNIT/3 SQ; +NOVOLOG PE100 UNITS/ SC; +PERCOCET 7.51 TABLET PO; +VENLAFAXINE HCL75 M1 PO; +VITAMIN D400 UNIT PO
[2018-02-14 03:20] LABS: HEMATOCRIT 37.9 % (36.0-46.0); HEMOGLOBIN 12.2 G/DL (11.9-15.5); MCH 25.1 PG (29.0-34.0); MCHC 32.2 G/DL (30.0-36.0); RBC DIS.WIDTH-CV 14.3 % (11.8-14.6); RED BLOOD COUNT 4.86 M/uL (3.80-5.20); WHITE BLOOD COUNT 12.5 K/uL (4.1-10.2)
[2018-02-14 03:27] LABS: ALBUMIN 3.1 g/dL (3.2-4.8); CHLORIDE 100 mEq/L (99-109); POTASSIUM 3.5 mEq/L (3.7-5.4); SODIUM 135 mEq/L (136-147)
[2018-02-14 03:30] LABS: TOTAL PROTEIN 7.3 g/dL (6.4-8.3)
[2018-02-14 03:32] LABS: TOTAL BILIRUBIN 0.3 mg/dL (0.0-1.0)
[2018-02-14 03:33] LABS: ALKALINE PHOSPHATASE 72 IU/L (3-129); GFR ESTIMATE (CALCULATED) 33 mL/min/
[2018-02-14 03:34] LABS: UREA NITROGEN (BUN) 37 mg/dL (9-23)
[2018-02-14 03:35] LABS: AST (GOT) 12 IU/L (2-34)
[2018-02-14 03:36] LABS: ALT (GPT) 10 IU/L (3-49)
[2018-02-14 03:38] LABS: GLUCOSE 465 mg/dL (70-99)
[2018-02-14 04:18] LABS: PLATELET COUNT 142 K/uL (156-360)
[2018-02-14 04:23] LABS: LIPASE 35 U/L (1.0-51.0)
[2018-02-14 06:15] LABS: APPEARANCE CLOUDY ((CLEAR)); BILIRUBIN NEGATIVE; BLOOD SMALL; COLOR YELLOW ((YELLOW)); GLUCOSE (STRIP) >=500; KETONES 5; LEUKOCYTES SMALL; NITRITE NEGATIVE; PROTEIN (STRIP) >=500; SPECIFIC GRAVITY 1.025 (1.000-1.030); UROBILINOGEN 0.2 MG/DL (0.2-1.0)
[2018-02-14 06:20] LABS: BACTERIA RARE /HPF; EPITHELIAL CELLS 1+ /HPF; MUCUS TRACE /LPF; RED BLOOD CELLS 20-30 /HPF (0-5); UCUL ADDED? YES; WHITE BLOOD CELLS 30-40 /HPF (0-5)
[2018-02-14] MEDS ORDERED: ATARAX,VISTARIL25 MG PO (06:42)
[2018-02-14] MEDS ORDERED: BACTRIM,SEPT1 TABLET PO (06:42)
[2018-02-14] MEDS ORDERED: REGLAN10 MG PO (06:42)
[2018-02-14 06:49] VITALS: BP 189/95
== END 2018-02-14 06:55 | disposition home or self-care (01) ==
LOC: EME 02:37
PROVIDERS: Emergency Medicine
DX: L29.9 Pruritus, unspecified (principal); R10.30 Lower abdominal pain, unspecified; E11.65 Type 2 diabetes mellitus with hyperglycemia; N39.0 Urinary tract infection, site not specified; E11.43 Type 2 diabetes mellitus with diabetic autonomic (poly)neuropathy; K31.84 Gastroparesis; I12.9 Hypertensive chronic kidney disease with stage 1 through stage 4 chronic kidney disease, or unspecified chronic kidney disease; E11.22 Type 2 diabetes mellitus with diabetic chronic kidney disease; N18.9 Chronic kidney disease, unspecified; F41.9 Anxiety disorder, unspecified; Z88.0 Allergy status to penicillin; Z91.14 Patient's other noncompliance with medication regimen
CPT/HCPCS: 74176; 80053; 81003; 82948; 83690; 85027; 87086; 99281; 99285; J1200; J2405; J7030; Q0177; S0028

== ENCOUNTER 2018-02-24 23:51 | Inpatient (IN) | payer SELFPAY ==
[~2018-02-24] VITALS: Ht 152.4 cm; Wt 67.9 kg
[~2018-02-24 23:51] MED LIST changes: +ATARAX,VISTARIL25 MG PO; +REGLAN10 MG PO; +VITAMIN D-3 401 EACH PO; -VITAMIN D400 UNIT PO
[2018-02-25 00:42] LABS: BASOPHIL (%) 0.4 % (0-1); BASOPHIL COUNT 0.1 K/uL (0-0.1); EOSINOPHIL (%) 0.4 % (0-5); HEMATOCRIT 36.5 % (36.0-46.0); HEMOGLOBIN 12.1 G/DL (11.9-15.5); IMMATURE GRANULOCYTE (%) 0.5 % (0.0-0.7); LYMPHOCYTE (%) 21.5 % (15-42); LYMPHOCYTE COUNT 2.4 K/uL (1.0-2.8); MCH 25.3 PG (29.0-34.0); MCHC 33.2 G/DL (30.0-36.0); MCV 76.4 FL (83-99); MONOCYTE (%) 6.3 % (3-12); MONOCYTE COUNT 0.7 K/uL (0-0.8); NEUTROPHIL (%) 70.9 % (45-76); NEUTROPHIL COUNT 7.9 K/uL (1.8-6.4); RBC DIS.WIDTH-CV 14.1 % (11.8-14.6); RBC DIS.WIDTH-SD 38.5 % (39-53); RED BLOOD COUNT 4.78 M/uL (3.80-5.20); WHITE BLOOD COUNT 11.2 K/uL (4.1-10.2)
[2018-02-25 00:43] LABS: PLATELET COUNT 217 K/uL (156-360)
[2018-02-25 00:50] LABS: ALBUMIN 2.9 g/dL (3.2-4.8)
[2018-02-25 00:51] LABS: CHLORIDE 106 mEq/L (99-109); POTASSIUM 3.2 mEq/L (3.7-5.4); SODIUM 139 mEq/L (136-147)
[2018-02-25 00:53] LABS: GLUCOSE 383 mg/dL (70-99); TOTAL PROTEIN 7.1 g/dL (6.4-8.3)
[2018-02-25 00:55] LABS: TOTAL BILIRUBIN 0.7 mg/dL (0.0-1.0)
[2018-02-25 00:56] LABS: ALKALINE PHOSPHATASE 69 IU/L (3-129)
[2018-02-25 00:57] LABS: CREATININE 1.6 mg/dL (0.6-1.3); GFR ESTIMATE (CALCULATED) 43 mL/min/
[2018-02-25 00:58] LABS: AST (GOT) 12 IU/L (2-34); UREA NITROGEN (BUN) 22 mg/dL (9-23)
[2018-02-25 01:00] LABS: ALT (GPT) 9 IU/L (3-49); LIPASE 15 U/L (1.0-51.0)
[2018-02-25 01:03] LABS: TROP-I INTERPRETATION NEGATIVE; TROPONIN-I 0.02 ng/mL (0.0-0.30)
[2018-02-25 03:17] LABS: APPEARANCE SL.HAZY ((CLEAR)); BILIRUBIN NEGATIVE; BLOOD SMALL; COLOR YELLOW ((YELLOW)); GLUCOSE (STRIP) >=500; KETONES 20; LEUKOCYTES NEGATIVE; NITRITE NEGATIVE; PROTEIN (STRIP) >=500; SPECIFIC GRAVITY 1.031 (1.000-1.030); UROBILINOGEN 0.2 MG/DL (0.2-1.0)
[2018-02-25 03:27] LABS: BACTERIA RARE /HPF; EPITHELIAL CELLS 1+ /HPF; MUCUS NONE SEEN /LPF; UCUL ADDED? YES
[2018-02-25 08:49] VITALS: BP 167/88
[2018-02-25] MEDS ORDERED: NOVOLOG MI100 UNIT/2 SC (09:12)
[2018-02-25] MEDS ORDERED: OXYCODONE HCL5 MG PO (09:33)
[2018-02-25] MEDS ORDERED: LYRICA75 MG PO (09:34)
[2018-02-25] MEDS ORDERED: DULOXETINE HCL60 MG PO (09:34)
[2018-02-25] MEDS ORDERED: OLMESARTAN-HCT1 EAC2 PO (09:34)
[2018-02-25] MEDS ORDERED: NORVASC10 MG PO (10:16)
[2018-02-25 11:31] VITALS: BP 147/68
[2018-02-25 15:14] VITALS: BP 106/67
[2018-02-25 19:00] VITALS: BP 175/89
[2018-02-25 23:00] VITALS: BP 166/90
[2018-02-25 23:15] VITALS: BP 166/90
[2018-02-26 03:32] VITALS: BP 178/79
[2018-02-26 06:24] LABS: HEMATOCRIT 32.5 % (36.0-46.0); HEMOGLOBIN 10.2 G/DL (11.9-15.5); MCH 24.6 PG (29.0-34.0); MCHC 31.4 G/DL (30.0-36.0); MCV 78.5 FL (83-99); PLATELET COUNT 186 K/uL (156-360); RBC DIS.WIDTH-CV 14.6 % (11.8-14.6); RBC DIS.WIDTH-SD 42.3 % (39-53); RED BLOOD COUNT 4.14 M/uL (3.80-5.20); WHITE BLOOD COUNT 12.4 K/uL (4.1-10.2)
[2018-02-26 06:43] LABS: CHLORIDE 113 MEQ/L (99-109); CREATININE 1.5 MG/DL (0.6-1.3); GFR ESTIMATE (CALCULATED) 46 mL/min/; POTASSIUM 3.4 MEQ/L (3.7-5.4); SODIUM 143 MEQ/L (136-147); UREA NITROGEN (BUN) 16 mg/dL (9-23)
[2018-02-26 06:47] LABS: GLUCOSE 93 mg/dL (70-99)
[2018-02-26 07:45] VITALS: BP 176/83
[2018-02-26 11:49] VITALS: BP 187/89
[2018-02-26 14:58] VITALS: BP 128/72
[2018-02-26 16:06] VITALS: BP 115/58
[2018-02-26 20:08] VITALS: BP 169/78
[2018-02-27 00:45] VITALS: BP 134/63
[2018-02-27 04:17] VITALS: BP 128/58
[2018-02-27 07:29] VITALS: BP 101/54
[2018-02-27 12:00] VITALS: BP 122/64
[2018-02-27 16:06] VITALS: BP 105/55
[2018-02-27 20:01] VITALS: BP 116/64
[2018-02-28 00:06] VITALS: BP 115/57
[2018-02-28 06:36] LABS: BASOPHIL (%) 0.3 % (0-1); EOSINOPHIL (%) 2.3 % (0-5); EOSINOPHIL COUNT 0.2 K/uL (0-0.3); HEMATOCRIT 29.4 % (36.0-46.0); HEMOGLOBIN 9.1 G/DL (11.9-15.5); IMMATURE GRANULOCYTE (%) 0.9 % (0.0-0.7); LYMPHOCYTE (%) 46.8 % (15-42); LYMPHOCYTE COUNT 4.1 K/uL (1.0-2.8); MCH 25.4 PG (29.0-34.0); MCV 82.1 FL (83-99); MONOCYTE COUNT 0.7 K/uL (0-0.8); NEUTROPHIL (%) 41.7 % (45-76); NEUTROPHIL COUNT 3.7 K/uL (1.8-6.4); PLATELET COUNT 154 K/uL (156-360); RBC DIS.WIDTH-CV 15.6 % (11.8-14.6); RBC DIS.WIDTH-SD 46.5 % (39-53); RED BLOOD COUNT 3.58 M/uL (3.80-5.20); WHITE BLOOD COUNT 8.8 K/uL (4.1-10.2)
[2018-02-28 07:02] LABS: CHLORIDE 111 MEQ/L (99-109); POTASSIUM 3.8 MEQ/L (3.7-5.4); UREA NITROGEN (BUN) 20 mg/dL (9-23)
[2018-02-28 07:03] LABS: CREATININE 2.2 MG/DL (0.6-1.3); GFR ESTIMATE (CALCULATED) 30 mL/min/; GLUCOSE 117 mg/dL (70-99); SODIUM 135 MEQ/L (136-147)
[2018-02-28 07:20] VITALS: BP 132/61
[2018-02-28 10:25] VITALS: BP 168/75
[2018-02-28 11:26] LABS: GLUCOSE 221 mg/dL (70-99)
[2018-02-28 11:38] LABS: TROP-I INTERPRETATION NEGATIVE; TROPONIN-I 0.03 ng/mL (0.0-0.30)
[2018-02-28 11:40] LABS: PTT ND SEC (25-37)
[2018-02-28 12:55] LABS: INTER. NORMALIZED RATIO 1.1
[2018-02-28 15:32] VITALS: BP 143/55
[2018-02-28 23:30] VITALS: BP 127/58
[2018-03-01 07:25] LABS: BASOPHIL (%) 0.7 % (0-1); BASOPHIL COUNT 0.1 K/uL (0-0.1); EOSINOPHIL (%) 2.8 % (0-5); EOSINOPHIL COUNT 0.3 K/uL (0-0.3); HEMATOCRIT 33.6 % (36.0-46.0); HEMOGLOBIN 10.2 G/DL (11.9-15.5); IMMATURE GRANULOCYTE (%) 1.1 % (0.0-0.7); LYMPHOCYTE (%) 47.4 % (15-42); LYMPHOCYTE COUNT 5.6 K/uL (1.0-2.8); MCH 24.8 PG (29.0-34.0); MCHC 30.4 G/DL (30.0-36.0); MCV 81.6 FL (83-99); MONOCYTE (%) 8.3 % (3-12); NEUTROPHIL (%) 39.7 % (45-76); NEUTROPHIL COUNT 4.7 K/uL (1.8-6.4); PLATELET COUNT 172 K/uL (156-360); RBC DIS.WIDTH-CV 15.3 % (11.8-14.6); RBC DIS.WIDTH-SD 45.1 % (39-53); RED BLOOD COUNT 4.12 M/uL (3.80-5.20); WHITE BLOOD COUNT 11.8 K/uL (4.1-10.2)
[2018-03-01 07:43] LABS: CHLORIDE 111 MEQ/L (99-109); CREATININE 2.1 MG/DL (0.6-1.3); GFR ESTIMATE (CALCULATED) 31 mL/min/; GLUCOSE 190 mg/dL (70-99); POTASSIUM 4.2 MEQ/L (3.7-5.4); SODIUM 136 MEQ/L (136-147); UREA NITROGEN (BUN) 22 mg/dL (9-23)
[2018-03-01 09:30] VITALS: BP 168/76
[2018-03-01 15:48] VITALS: BP 121/58
[2018-03-01 23:15] VITALS: BP 132/62
[2018-03-02 07:30] VITALS: BP 113/57
[2018-03-02 11:40] VITALS: BP 123/57
[2018-03-02 13:15] LABS: HEMATOCRIT 30.8 % (36.0-46.0); HEMOGLOBIN 9.8 G/DL (11.9-15.5); MCH 25.5 PG (29.0-34.0); MCHC 31.8 G/DL (30.0-36.0); PLATELET COUNT 176 K/uL (156-360); RBC DIS.WIDTH-CV 15.6 % (11.8-14.6); RBC DIS.WIDTH-SD 44.6 % (39-53); RED BLOOD COUNT 3.85 M/uL (3.80-5.20); WHITE BLOOD COUNT 8.7 K/uL (4.1-10.2)
[2018-03-02 13:48] LABS: CHLORIDE 112 MEQ/L (99-109); POTASSIUM 4.2 MEQ/L (3.7-5.4); SODIUM 138 MEQ/L (136-147)
[2018-03-02 13:54] LABS: GFR ESTIMATE (CALCULATED) 33 mL/min/; GLUCOSE 173 mg/dL (70-99); UREA NITROGEN (BUN) 20 mg/dL (9-23)
[2018-03-02 15:50] VITALS: BP 115/59
[2018-03-02 23:33] VITALS: BP 110/55
[2018-03-03 05:07] VITALS: BP 118/65
[2018-03-03 08:34] VITALS: BP 114/58
[2018-03-03 09:39] LABS: BASOPHIL (%) 0.5 % (0-1); BASOPHIL COUNT 0.1 K/uL (0-0.1); EOSINOPHIL (%) 3.5 % (0-5); EOSINOPHIL COUNT 0.4 K/uL (0-0.3); HEMATOCRIT 31.7 % (36.0-46.0); IMMATURE GRANULOCYTE (%) 1.1 % (0.0-0.7); LYMPHOCYTE (%) 39.5 % (15-42); LYMPHOCYTE COUNT 3.9 K/uL (1.0-2.8); MCH 25.3 PG (29.0-34.0); MCHC 31.5 G/DL (30.0-36.0); MCV 80.3 FL (83-99); MONOCYTE COUNT 0.9 K/uL (0-0.8); NEUTROPHIL (%) 46.4 % (45-76); NEUTROPHIL COUNT 4.6 K/uL (1.8-6.4); PLATELET COUNT 162 K/uL (156-360); RBC DIS.WIDTH-CV 15.4 % (11.8-14.6); RBC DIS.WIDTH-SD 44.4 % (39-53); RED BLOOD COUNT 3.95 M/uL (3.80-5.20)
[2018-03-03 10:15] LABS: CHLORIDE 112 MEQ/L (99-109); CREATININE 1.9 MG/DL (0.6-1.3); GFR ESTIMATE (CALCULATED) 35 mL/min/; GLUCOSE 163 mg/dL (70-99); POTASSIUM 4.1 MEQ/L (3.7-5.4); SODIUM 136 MEQ/L (136-147); UREA NITROGEN (BUN) 19 mg/dL (9-23)
[2018-03-03 15:42] VITALS: BP 121/61
[2018-03-03 23:41] VITALS: BP 132/63
[2018-03-04 05:39] LABS: BASOPHIL (%) 0.6 % (0-1); BASOPHIL COUNT 0.1 K/uL (0-0.1); EOSINOPHIL (%) 3.5 % (0-5); EOSINOPHIL COUNT 0.4 K/uL (0-0.3); HEMATOCRIT 30.5 % (36.0-46.0); HEMOGLOBIN 9.5 G/DL (11.9-15.5); IMMATURE GRANULOCYTE (%) 1.1 % (0.0-0.7); LYMPHOCYTE (%) 38.6 % (15-42); LYMPHOCYTE COUNT 3.9 K/uL (1.0-2.8); MCH 24.9 PG (29.0-34.0); MCHC 31.1 G/DL (30.0-36.0); MCV 79.8 FL (83-99); MONOCYTE (%) 8.2 % (3-12); MONOCYTE COUNT 0.8 K/uL (0-0.8); NEUTROPHIL COUNT 4.9 K/uL (1.8-6.4); PLATELET COUNT 163 K/uL (156-360); RBC DIS.WIDTH-CV 15.6 % (11.8-14.6); RBC DIS.WIDTH-SD 44.7 % (39-53); RED BLOOD COUNT 3.82 M/uL (3.80-5.20); WHITE BLOOD COUNT 10.1 K/uL (4.1-10.2)
[2018-03-04 05:59] LABS: CHLORIDE 111 MEQ/L (99-109); CREATININE 1.7 MG/DL (0.6-1.3); GFR ESTIMATE (CALCULATED) 40 mL/min/; GLUCOSE 150 mg/dL (70-99); POTASSIUM 4.1 MEQ/L (3.7-5.4); SODIUM 138 MEQ/L (136-147); UREA NITROGEN (BUN) 17 mg/dL (9-23)
[2018-03-04 07:11] VITALS: BP 137/63
[2018-03-04] MEDS ORDERED: NOVOLOG 10100 UNITS/ SC ×2 (14:50→15:03)
[2018-03-04] MEDS ORDERED: NIFEDIPINE ER30 MG PO (14:55)
[2018-03-04] MEDS ORDERED: APRESOLINE25 MG PO (14:55)
[2018-03-04] MEDS ORDERED: ZOFRAN4 MG PO (14:59)
[2018-03-04 15:20] VITALS: BP 144/69
== END 2018-03-04 17:44 | disposition home or self-care (01) | DRG 392 ==
LOC: EME 23:51 → EDOF 02-25 04:18 → 2EAST 02-25 04:18 → ENRESERV 02-25 04:39 → 2EAST 02-25 08:48
PROVIDERS: Emergency Medicine; Family Medicine; Internal Medicine; Internal Medicine Nephrology
DX: A09 Infectious gastroenteritis and colitis, unspecified (principal); N17.9 Acute kidney failure, unspecified; N14.1 Nephropathy induced by other drugs, medicaments and biological substances; T50.8X5A Adverse effect of diagnostic agents, initial encounter; E11.65 Type 2 diabetes mellitus with hyperglycemia; E11.22 Type 2 diabetes mellitus with diabetic chronic kidney disease; E11.40 Type 2 diabetes mellitus with diabetic neuropathy, unspecified; E11.649 Type 2 diabetes mellitus with hypoglycemia without coma; E86.0 Dehydration; E87.6 Hypokalemia; I12.9 Hypertensive chronic kidney disease with stage 1 through stage 4 chronic kidney disease, or unspecified chronic kidney disease; N18.3 Chronic kidney disease, stage 3 (moderate); N04.9 Nephrotic syndrome with unspecified morphologic changes; E78.5 Hyperlipidemia, unspecified; K21.9 Gastro-esophageal reflux disease without esophagitis; F41.9 Anxiety disorder, unspecified; F32.9 Major depressive disorder, single episode, unspecified; E66.9 Obesity, unspecified; Z68.29 Body mass index [BMI] 29.0-29.9, adult; Z79.4 Long term (current) use of insulin; Z79.82 Long term (current) use of aspirin; Z88.0 Allergy status to penicillin
CPT/HCPCS: 74177; 76937; 80048; 80053; 81003; 82140; 82948; 83605; 83690; 83735; 84484; 84999; 85025; 85027; 85610; 85730; 87040; 87086; 93005; 99281; 99285; C1753; J1644; J1815; J1956; J2405; J2765; J3010; J3480; J7030; J7040; S0030

== ENCOUNTER 2018-03-08 11:17 | Inpatient (IN) | payer OTHER ==
[~2018-03-08] VITALS: Ht 152.4 cm; Wt 67.3 kg
[~2018-03-08 11:17] MED LIST changes: +APRESOLINE25 MG PO; +DULOXETINE HCL60 MG PO; +NOVOLOG 10100 UNITS/ SC; +OLMESARTAN-HCT1 EAC2 PO
[2018-03-08 11:53] LABS: BASOPHIL (%) 0.4 % (0-1); BASOPHIL COUNT 0.1 K/uL (0-0.1); EOSINOPHIL (%) 0 % (0-5); HEMOGLOBIN 12.1 G/DL (11.9-15.5); IMMATURE GRANULOCYTE (%) 0.7 % (0.0-0.7); LYMPHOCYTE (%) 15.7 % (15-42); LYMPHOCYTE COUNT 2.2 K/uL (1.0-2.8); MCH 25.6 PG (29.0-34.0); MCHC 32.7 G/DL (30.0-36.0); MCV 78.4 FL (83-99); MONOCYTE (%) 7.6 % (3-12); MONOCYTE COUNT 1.1 K/uL (0-0.8); NEUTROPHIL (%) 75.6 % (45-76); NEUTROPHIL COUNT 10.5 K/uL (1.8-6.4); PLATELET COUNT 189 K/uL (156-360); RBC DIS.WIDTH-CV 15.2 % (11.8-14.6); RBC DIS.WIDTH-SD 42.5 % (39-53); RED BLOOD COUNT 4.72 M/uL (3.80-5.20); WHITE BLOOD COUNT 13.9 K/uL (4.1-10.2)
[2018-03-08 12:09] LABS: ALBUMIN 3.1 g/dL (3.2-4.8); CHLORIDE 106 mEq/L (99-109); SODIUM 144 mEq/L (136-147)
[2018-03-08 12:12] LABS: GLUCOSE 371 mg/dL (70-99); TOTAL PROTEIN 6.2 g/dL (6.4-8.3)
[2018-03-08 12:13] LABS: TOTAL BILIRUBIN 0.5 mg/dL (0.0-1.0)
[2018-03-08 12:15] LABS: ALKALINE PHOSPHATASE 70 IU/L (3-129); CREATININE 1.7 mg/dL (0.6-1.3); GFR ESTIMATE (CALCULATED) 40 mL/min/
[2018-03-08 12:16] LABS: UREA NITROGEN (BUN) 14 mg/dL (9-23)
[2018-03-08 12:17] LABS: AST (GOT) 17 IU/L (2-34)
[2018-03-08 12:18] LABS: ALT (GPT) 16 IU/L (3-49)
[2018-03-08 12:19] LABS: LIPASE 14 U/L (1.0-51.0)
[2018-03-08] MEDS ORDERED: NOVOLOG MI100 UNIT/2 SC ×2 (15:43)
[2018-03-08 16:44] LABS: MAGNESIUM 1.7 mg/dL (1.3-2.7)
[2018-03-08 19:30] VITALS: BP 172/88
[2018-03-09 00:05] VITALS: BP 142/63
[2018-03-09 04:05] VITALS: BP 140/71
[2018-03-09 07:00] LABS: CHLORIDE 108 MEQ/L (99-109); CREATININE 2.1 MG/DL (0.6-1.3); GFR ESTIMATE (CALCULATED) 31 mL/min/; POTASSIUM 3.1 MEQ/L (3.7-5.4); SODIUM 142 MEQ/L (136-147); UREA NITROGEN (BUN) 19 mg/dL (9-23)
[2018-03-09 07:02] LABS: GLUCOSE 141 mg/dL (70-99)
[2018-03-09 07:10] LABS: HEMATOCRIT 29.3 % (36.0-46.0); MCH 25.4 PG (29.0-34.0); MCHC 32.1 G/DL (30.0-36.0); MCV 79.2 FL (83-99); PLATELET COUNT 153 K/uL (156-360); RBC DIS.WIDTH-CV 15.6 % (11.8-14.6); RBC DIS.WIDTH-SD 44.4 % (39-53)
[2018-03-09 07:35] LABS: HEMOGLOBIN 9.4 G/DL (11.9-15.5)
[2018-03-09 08:35] VITALS: BP 116/59
[2018-03-09 12:44] VITALS: BP 123/76
[2018-03-09 12:44] LABS: APPEARANCE CLOUDY ((CLEAR)); BILIRUBIN NEGATIVE; BLOOD SMALL; COLOR YELLOW ((YELLOW)); GLUCOSE (STRIP) >=500; KETONES 5; LEUKOCYTES NEGATIVE; NITRITE NEGATIVE; PROTEIN (STRIP) 100; SPECIFIC GRAVITY 1.024 (1.000-1.030); UROBILINOGEN 0.2 MG/DL (0.2-1.0)
[2018-03-09 13:05] LABS: EPITHELIAL CELLS 2+ /HPF
[2018-03-09 13:06] LABS: BACTERIA 2+ /HPF; MUCUS RARE /LPF; UCUL ADDED? YES
[2018-03-09 16:10] VITALS: BP 131/73
[2018-03-09 20:06] VITALS: BP 143/64
[2018-03-10 00:14] VITALS: BP 151/68
[2018-03-10 04:47] VITALS: BP 142/65
[2018-03-10 06:15] LABS: BASOPHIL (%) 0.2 % (0-1); EOSINOPHIL (%) 0.9 % (0-5); EOSINOPHIL COUNT 0.2 K/uL (0-0.3); HEMATOCRIT 30.5 % (36.0-46.0); HEMOGLOBIN 9.8 G/DL (11.9-15.5); IMM.RETIC FRACTION 12.3 % (3-19); IMMATURE GRANULOCYTE (%) 0.8 % (0.0-0.7); LYMPHOCYTE (%) 4.7 % (15-42); LYMPHOCYTE COUNT 0.9 K/uL (1.0-2.8); MCH 25.8 PG (29.0-34.0); MCHC 32.1 G/DL (30.0-36.0); MCV 80.3 FL (83-99); MONOCYTE (%) 6.5 % (3-12); MONOCYTE COUNT 1.2 K/uL (0-0.8); NEUTROPHIL (%) 86.9 % (45-76); PLATELET COUNT 126 K/uL (156-360); RBC DIS.WIDTH-CV 15.5 % (11.8-14.6); RBC DIS.WIDTH-SD 44.7 % (39-53); RETIC HGB EQUIVALENT 29.7 (28-36); RETICULOCYTE COUNT 2.4 % (0.5-1.8); WHITE BLOOD COUNT 18.4 K/uL (4.1-10.2)
[2018-03-10 06:16] LABS: INTER. NORMALIZED RATIO 1.1
[2018-03-10 06:42] LABS: ALBUMIN 2.2 G/DL (3.2-4.8); ALKALINE PHOSPHATASE 44 IU/L (3-129); ALT (GPT) 15 IU/L (3-49); AST (GOT) 34 IU/L (2-34); CHLORIDE 105 MEQ/L (99-109); CREATININE 2.2 MG/DL (0.6-1.3); GFR ESTIMATE (CALCULATED) 30 mL/min/; GLUCOSE 173 mg/dL (70-99); SODIUM 138 MEQ/L (136-147); TOTAL BILIRUBIN 0.4 MG/DL (0.0-1.0); TOTAL PROTEIN 4.6 G/DL (6.4-8.3); UREA NITROGEN (BUN) 21 mg/dL (9-23)
[2018-03-10 06:44] LABS: POTASSIUM 2.8 MEQ/L (3.7-5.4)
[2018-03-10 06:53] LABS: CHLORIDE 107 MEQ/L (99-109); CREATININE 2.2 MG/DL (0.6-1.3); GFR ESTIMATE (CALCULATED) 30 mL/min/; GLUCOSE 174 mg/dL (70-99); IRON 10 MCG/DL (35-150); POTASSIUM 2.9 MEQ/L (3.7-5.4); SODIUM 140 MEQ/L (136-147); TRANSFERRIN (TIBC) 137.7 mg/dL (215-380); TRANSFERRIN SATUR. 7 % (20-55); UREA NITROGEN (BUN) 21 mg/dL (9-23)
[2018-03-10 07:29] VITALS: BP 158/74
[2018-03-10 10:43] VITALS: BP 148/76
[2018-03-10 16:11] VITALS: BP 176/81
[2018-03-10 19:43] LABS: CHLORIDE 110 MEQ/L (99-109); GFR ESTIMATE (CALCULATED) 33 mL/min/; GLUCOSE 143 mg/dL (70-99); POTASSIUM 3.2 MEQ/L (3.7-5.4); SODIUM 139 MEQ/L (136-147); UREA NITROGEN (BUN) 17 mg/dL (9-23)
[2018-03-10 19:45] VITALS: BP 144/69
[2018-03-11] VITALS (10 sets, daily range): BP systolic 137–212; BP diastolic 65–95
[2018-03-11 10:45] LABS: BASOPHIL (%) 0.4 % (0-1); BASOPHIL COUNT 0.1 K/uL (0-0.1); EOSINOPHIL COUNT 0.4 K/uL (0-0.3); HEMATOCRIT 32.1 % (36.0-46.0); HEMOGLOBIN 10.4 G/DL (11.9-15.5); IMMATURE GRANULOCYTE (%) 0.4 % (0.0-0.7); LYMPHOCYTE (%) 22.2 % (15-42); MCH 26.1 PG (29.0-34.0); MCHC 32.4 G/DL (30.0-36.0); MCV 80.5 FL (83-99); MONOCYTE (%) 9.6 % (3-12); MONOCYTE COUNT 1.3 K/uL (0-0.8); NEUTROPHIL (%) 64.4 % (45-76); NEUTROPHIL COUNT 8.8 K/uL (1.8-6.4); PLATELET COUNT 121 K/uL (156-360); RBC DIS.WIDTH-CV 15.5 % (11.8-14.6); RBC DIS.WIDTH-SD 45.3 % (39-53); RED BLOOD COUNT 3.99 M/uL (3.80-5.20); WHITE BLOOD COUNT 13.7 K/uL (4.1-10.2)
[2018-03-11 11:59] LABS: CHLORIDE 110 MEQ/L (99-109); CREATININE 1.7 MG/DL (0.6-1.3); GFR ESTIMATE (CALCULATED) 40 mL/min/; GLUCOSE 129 mg/dL (70-99); SODIUM 140 MEQ/L (136-147); UREA NITROGEN (BUN) 15 mg/dL (9-23)
[2018-03-12 04:02] VITALS: BP 149/70
[2018-03-12 06:12] LABS: BASOPHIL (%) 0.4 % (0-1); BASOPHIL COUNT 0.1 K/uL (0-0.1); EOSINOPHIL (%) 2.8 % (0-5); EOSINOPHIL COUNT 0.3 K/uL (0-0.3); HEMATOCRIT 30.1 % (36.0-46.0); HEMOGLOBIN 9.6 G/DL (11.9-15.5); IMMATURE GRANULOCYTE (%) 0.4 % (0.0-0.7); LYMPHOCYTE (%) 23.5 % (15-42); LYMPHOCYTE COUNT 2.8 K/uL (1.0-2.8); MCH 25.6 PG (29.0-34.0); MCHC 31.9 G/DL (30.0-36.0); MCV 80.3 FL (83-99); MONOCYTE (%) 8.7 % (3-12); NEUTROPHIL (%) 64.2 % (45-76); NEUTROPHIL COUNT 7.7 K/uL (1.8-6.4); PLATELET COUNT 140 K/uL (156-360); RBC DIS.WIDTH-CV 15.4 % (11.8-14.6); RBC DIS.WIDTH-SD 45.1 % (39-53); RED BLOOD COUNT 3.75 M/uL (3.80-5.20)
[2018-03-12 07:12] LABS: CHLORIDE 110 MEQ/L (99-109); CREATININE 1.6 MG/DL (0.6-1.3); GFR ESTIMATE (CALCULATED) 43 mL/min/; GLUCOSE 97 mg/dL (70-99); SODIUM 139 MEQ/L (136-147); UREA NITROGEN (BUN) 12 mg/dL (9-23)
[2018-03-12 07:55] VITALS: BP 146/85; BP 179/82
[2018-03-12 11:01] VITALS: BP 169/73
[2018-03-12 11:50] VITALS: BP 191/91
[2018-03-12 15:55] VITALS: BP 138/79
[2018-03-12 20:00] VITALS: BP 173/81
[2018-03-13] VITALS: BP 143/73
[2018-03-13 04:00] VITALS: BP 138/76
[2018-03-13 06:04] LABS: BASOPHIL (%) 0.6 % (0-1); BASOPHIL COUNT 0.1 K/uL (0-0.1); EOSINOPHIL (%) 3.4 % (0-5); EOSINOPHIL COUNT 0.3 K/uL (0-0.3); HEMATOCRIT 32.1 % (36.0-46.0); IMMATURE GRANULOCYTE (%) 0.4 % (0.0-0.7); LYMPHOCYTE (%) 31.6 % (15-42); LYMPHOCYTE COUNT 3.1 K/uL (1.0-2.8); MCH 25.1 PG (29.0-34.0); MCHC 31.2 G/DL (30.0-36.0); MCV 80.7 FL (83-99); MONOCYTE (%) 8.9 % (3-12); MONOCYTE COUNT 0.9 K/uL (0-0.8); NEUTROPHIL (%) 55.1 % (45-76); NEUTROPHIL COUNT 5.4 K/uL (1.8-6.4); PLATELET COUNT 139 K/uL (156-360); RED BLOOD COUNT 3.98 M/uL (3.80-5.20); WHITE BLOOD COUNT 9.9 K/uL (4.1-10.2)
[2018-03-13 06:30] LABS: CHLORIDE 109 MEQ/L (99-109); CREATININE 1.4 MG/DL (0.6-1.3); GFR ESTIMATE (CALCULATED) 50 mL/min/; GLUCOSE 127 mg/dL (70-99); MAGNESIUM 1.4 mg/dl (1.3-2.7); POTASSIUM 3.3 MEQ/L (3.7-5.4); SODIUM 138 MEQ/L (136-147); UREA NITROGEN (BUN) 9 mg/dL (9-23)
[2018-03-13 07:57] VITALS: BP 177/89
[2018-03-13 11:25] VITALS: BP 172/81
[2018-03-13 15:06] LABS: BASOPHIL (%) 0.4 % (0-1); EOSINOPHIL (%) 3.8 % (0-5); EOSINOPHIL COUNT 0.4 K/uL (0-0.3); HEMATOCRIT 35.2 % (36.0-46.0); HEMOGLOBIN 11.2 G/DL (11.9-15.5); IMMATURE GRANULOCYTE (%) 0.7 % (0.0-0.7); LYMPHOCYTE (%) 26.6 % (15-42); LYMPHOCYTE COUNT 2.6 K/uL (1.0-2.8); MCH 25.2 PG (29.0-34.0); MCHC 31.8 G/DL (30.0-36.0); MCV 79.3 FL (83-99); MONOCYTE (%) 7.8 % (3-12); MONOCYTE COUNT 0.8 K/uL (0-0.8); NEUTROPHIL (%) 60.7 % (45-76); NEUTROPHIL COUNT 5.9 K/uL (1.8-6.4); PLATELET COUNT 176 K/uL (156-360); RBC DIS.WIDTH-CV 14.8 % (11.8-14.6); RBC DIS.WIDTH-SD 43.2 % (39-53); RED BLOOD COUNT 4.44 M/uL (3.80-5.20); WHITE BLOOD COUNT 9.8 K/uL (4.1-10.2)
[2018-03-13 15:38] LABS: CHLORIDE 107 MEQ/L (99-109); CREATININE 1.4 MG/DL (0.6-1.3); GFR ESTIMATE (CALCULATED) 50 mL/min/; GLUCOSE 212 mg/dL (70-99); POTASSIUM 3.7 MEQ/L (3.7-5.4); SODIUM 134 MEQ/L (136-147); UREA NITROGEN (BUN) 9 mg/dL (9-23)
[2018-03-13 16:13] VITALS: BP 163/89
[2018-03-13 19:30] VITALS: BP 138/71
[2018-03-14 03:39] VITALS: BP 123/58
[2018-03-14 07:07] LABS: BASOPHIL (%) 0.4 % (0-1); EOSINOPHIL COUNT 0.4 K/uL (0-0.3); HEMATOCRIT 31.5 % (36.0-46.0); HEMOGLOBIN 10.3 G/DL (11.9-15.5); IMMATURE GRANULOCYTE (%) 1.2 % (0.0-0.7); LYMPHOCYTE (%) 44.3 % (15-42); LYMPHOCYTE COUNT 4.4 K/uL (1.0-2.8); MCH 25.9 PG (29.0-34.0); MCHC 32.7 G/DL (30.0-36.0); MCV 79.1 FL (83-99); MONOCYTE (%) 8.8 % (3-12); MONOCYTE COUNT 0.9 K/uL (0-0.8); NEUTROPHIL (%) 41.3 % (45-76); NEUTROPHIL COUNT 4.1 K/uL (1.8-6.4); PLATELET COUNT 172 K/uL (156-360); RBC DIS.WIDTH-CV 14.8 % (11.8-14.6); RBC DIS.WIDTH-SD 42.8 % (39-53); RED BLOOD COUNT 3.98 M/uL (3.80-5.20)
[2018-03-14 07:25] LABS: CHLORIDE 106 MEQ/L (99-109); CREATININE 1.6 MG/DL (0.6-1.3); GFR ESTIMATE (CALCULATED) 43 mL/min/; GLUCOSE 140 mg/dL (70-99); MAGNESIUM 1.6 mg/dl (1.3-2.7); POTASSIUM 3.6 MEQ/L (3.7-5.4); SODIUM 134 MEQ/L (136-147); UREA NITROGEN (BUN) 11 mg/dL (9-23)
[2018-03-14 08:14] VITALS: BP 167/81
[2018-03-14 11:04] VITALS: BP 138/67
[2018-03-14] MEDS ORDERED: K-DUR20 MEQ PO (13:55)
[2018-03-14] MEDS ORDERED: NIFEDIPINE ER60 MG PO (13:55)
[2018-03-14] MEDS ORDERED: POLYETHYLENE GL17 GM PO (13:56)
[2018-03-14] MEDS ORDERED: MAGNESIUM400 M1 PO (13:56)
[2018-03-14] MEDS ORDERED: PANTOPRAZOLE SO40 MG PO (13:57)
[2018-03-14] MEDS ORDERED: ZOFRAN4 MG PO (13:57)
[2018-03-14] MEDS ORDERED: NOVOLOG MI100 UNIT/2 SC ×2 (13:59→14:00)
[2018-03-14 15:52] VITALS: BP 134/68
== END 2018-03-14 17:03 | disposition home or self-care (01) | DRG 392 ==
LOC: EME 11:17 → EDOF 15:05 → 5WEST 15:05 → ENRESERV 15:07 → 5WEST 19:12
PROVIDERS: Emergency Medicine; Internal Medicine; Specialist
DX: K29.80 Duodenitis without bleeding (principal); K52.9 Noninfective gastroenteritis and colitis, unspecified; E87.6 Hypokalemia; I16.0 Hypertensive urgency; E11.22 Type 2 diabetes mellitus with diabetic chronic kidney disease; I12.9 Hypertensive chronic kidney disease with stage 1 through stage 4 chronic kidney disease, or unspecified chronic kidney disease; N18.3 Chronic kidney disease, stage 3 (moderate); F32.9 Major depressive disorder, single episode, unspecified; F41.9 Anxiety disorder, unspecified; E11.65 Type 2 diabetes mellitus with hyperglycemia; E78.5 Hyperlipidemia, unspecified; K21.9 Gastro-esophageal reflux disease without esophagitis; K59.00 Constipation, unspecified; K29.70 Gastritis, unspecified, without bleeding; E66.9 Obesity, unspecified; Z68.28 Body mass index [BMI] 28.0-28.9, adult; D64.9 Anemia, unspecified; G89.29 Other chronic pain; E86.0 Dehydration
CPT/HCPCS: 74176; 80048; 80048 91; 80053; 81003; 82272; 82607; 82948; 83540; 83690; 83735; 84132 91; 84466; 85025; 85025 91; 85027; 85046; 85610; 85730; 87086; 87177; 87493; 87506; 88305; 88342 TC; 99281; 99284; C9113; G0378; J0360; J0744; J1815; J1885; J2405; J2765; J3480; J7030; Q0164; S0030

== ENCOUNTER 2018-03-28 19:41 | Emergency (ER) | payer SELFPAY ==
[~2018-03-28] VITALS: Ht 152.4 cm; Wt 63.4 kg
[~2018-03-28 19:41] MED LIST changes: +K-DUR20 MEQ PO; +MAGNESIUM400 M1 PO; +NIFEDIPINE ER60 MG PO; +PANTOPRAZOLE SO40 MG PO; +POLYETHYLENE GL17 GM PO
[2018-03-28 20:37] LABS: HEMATOCRIT 38.9 % (36.0-46.0); MCH 25.8 PG (29.0-34.0); MCHC 32.1 G/DL (30.0-36.0); MCV 80.4 FL (83-99); PLATELET COUNT 188 K/uL (156-360); RBC DIS.WIDTH-CV 14.6 % (11.8-14.6); RBC DIS.WIDTH-SD 42.2 % (39-53); WHITE BLOOD COUNT 12.5 K/uL (4.1-10.2)
[2018-03-28 20:51] LABS: HEMOGLOBIN 12.5 G/DL (11.9-15.5); RED BLOOD COUNT 4.84 M/uL (3.80-5.20)
[2018-03-28 21:17] LABS: GLUCOSE 441 mg/dL (70-99)
[2018-03-28 21:18] LABS: ALBUMIN 2.8 G/DL (3.2-4.8); ALKALINE PHOSPHATASE 62 IU/L (3-129); ALT (GPT) 5 IU/L (3-49); AST (GOT) 9 IU/L (2-34); CHLORIDE 101 MEQ/L (99-109); CREATININE 1.6 MG/DL (0.6-1.3); GFR ESTIMATE (CALCULATED) 43 mL/min/; LIPASE 6 U/L (1.0-51.0); POTASSIUM 3.6 MEQ/L (3.7-5.4); SODIUM 137 MEQ/L (136-147); TOTAL BILIRUBIN 0.5 MG/DL (0.0-1.0); TOTAL PROTEIN 6.1 G/DL (6.4-8.3); UREA NITROGEN (BUN) 25 mg/dL (9-23)
[2018-03-29] MEDS ORDERED: ZOFRAN4 MG PO (02:37)
[2018-03-29] MEDS ORDERED: PROMETHAZINE HC25 M1 PO (02:37)
[2018-03-29 03:25] VITALS: BP 149/77
== END 2018-03-29 03:25 | disposition home or self-care (01) ==
LOC: EME → EDBD 19:41 → EME 03-29 03:25
PROVIDERS: Emergency Medicine
DX: K31.84 Gastroparesis (principal); E11.65 Type 2 diabetes mellitus with hyperglycemia; E11.22 Type 2 diabetes mellitus with diabetic chronic kidney disease; I12.9 Hypertensive chronic kidney disease with stage 1 through stage 4 chronic kidney disease, or unspecified chronic kidney disease; N18.9 Chronic kidney disease, unspecified; Z79.4 Long term (current) use of insulin; Z88.0 Allergy status to penicillin
CPT/HCPCS: 80053; 81003; 82948; 83605; 83690; 85027; 93005; 99281; 99285; J1630; J1815; J2405; J3010; J7030

== ENCOUNTER 2018-03-31 13:08 | Inpatient (IN) | payer OTHER ==
[~2018-03-31] VITALS: Ht 152.4 cm; Wt 71.8 kg
[~2018-03-31 13:08] MED LIST changes: +PROMETHAZINE HC25 M1 PO
[2018-03-31 14:39] LABS: HEMOGLOBIN 12.2 G/DL (11.9-15.5); MCH 26.2 PG (29.0-34.0); MCV 79.6 FL (83-99); RBC DIS.WIDTH-CV 13.8 % (11.8-14.6); RBC DIS.WIDTH-SD 39.8 % (39-53); RED BLOOD COUNT 4.65 M/uL (3.80-5.20); WHITE BLOOD COUNT 9.9 K/uL (4.1-10.2)
[2018-03-31 14:48] LABS: ALBUMIN 2.5 g/dL (3.2-4.8); CHLORIDE 104 mEq/L (99-109); SODIUM 138 mEq/L (136-147)
[2018-03-31 14:50] LABS: POTASSIUM 2.5 mEq/L (3.7-5.4)
[2018-03-31 14:51] LABS: GLUCOSE 327 mg/dL (70-99); TOTAL PROTEIN 5.6 g/dL (6.4-8.3)
[2018-03-31 14:53] LABS: TOTAL BILIRUBIN 0.5 mg/dL (0.0-1.0)
[2018-03-31 14:54] LABS: ALKALINE PHOSPHATASE 54 IU/L (3-129); CREATININE 1.5 mg/dL (0.6-1.3); GFR ESTIMATE (CALCULATED) 46 mL/min/
[2018-03-31 14:57] LABS: ALT (GPT) 7 IU/L (3-49)
[2018-03-31 14:58] LABS: LIPASE 8 U/L (1.0-51.0)
[2018-03-31 15:13] LABS: UREA NITROGEN (BUN) 18 mg/dL (9-23)
[2018-03-31 15:14] LABS: AST (GOT) 11 IU/L (2-34)
[2018-03-31 15:23] LABS: PLAT.SUFFICIENCY ADEQUATE; PLATELET COUNT 244 K/uL (156-360)
[2018-03-31 18:00] LABS: APPEARANCE CLEAR ((CLEAR)); BILIRUBIN NEGATIVE; BLOOD SMALL; COLOR YELLOW ((YELLOW)); GLUCOSE (STRIP) >=500; KETONES 5; LEUKOCYTES NEGATIVE; NITRITE NEGATIVE; PROTEIN (STRIP) >=500; SPECIFIC GRAVITY 1.015 (1.000-1.030); UROBILINOGEN 0.2 MG/DL (0.2-1.0)
[2018-03-31 18:06] LABS: BACTERIA NONE SEEN /HPF; EPITHELIAL CELLS RARE /HPF; MUCUS NONE SEEN /LPF; RED BLOOD CELLS 0-5 /HPF (0-5); UCUL ADDED? NO; WHITE BLOOD CELLS 0-5 /HPF (0-5)
[2018-03-31 18:11] LABS: AMPHETAMINE NEGATIVE (500 ng/mL); BARBITURATES NEGATIVE (200 ng/mL); BENZODIAZEPINES PRESUMPTIVE POSITIVE (150 ng/mL); BUPRENORPHINE NEGATIVE (10 ng/mL); COCAINE NEGATIVE (150 ng/mL); METHADONE NEGATIVE (200 ng/mL); METHAMPHETAMINE NEGATIVE (500 ng/mL); OPIATES (MORPHINE) NEGATIVE (100 ng/mL); OXYCODONE NEGATIVE (100 ng/mL); PHENCYCLIDINE NEGATIVE (25 ng/mL); PROPOXYPHENE NEGATIVE (300 ng/mL); THC CANNABINOIDS NEGATIVE (50 ng/mL); TRICYCLIC ANTIDEPRESSANTS NEGATIVE (300 ng/mL)
[2018-03-31 18:49] LABS: BENZODIAZEPINES, URINE SCREEN Negative (200 ng/mL)
[2018-03-31 21:04] VITALS: BP 158/60
[2018-04-01] VITALS (7 sets, daily range): BP systolic 109–178; BP diastolic 55–88
[2018-04-01 05:51] LABS: HEMATOCRIT 33.1 % (36.0-46.0); HEMOGLOBIN 10.5 G/DL (11.9-15.5); MCH 25.7 PG (29.0-34.0); MCHC 31.7 G/DL (30.0-36.0); MCV 80.9 FL (83-99); PLATELET COUNT 179 K/uL (156-360); RBC DIS.WIDTH-CV 14.2 % (11.8-14.6); RBC DIS.WIDTH-SD 41.2 % (39-53); RED BLOOD COUNT 4.09 M/uL (3.80-5.20); WHITE BLOOD COUNT 9.4 K/uL (4.1-10.2)
[2018-04-01 06:17] LABS: CHLORIDE 109 MEQ/L (99-109); CREATININE 1.6 MG/DL (0.6-1.3); GFR ESTIMATE (CALCULATED) 43 mL/min/; GLUCOSE 175 mg/dL (70-99); SODIUM 140 MEQ/L (136-147); UREA NITROGEN (BUN) 20 mg/dL (9-23)
[2018-04-02 00:01] VITALS: BP 110/57
[2018-04-02 03:56] VITALS: BP 93/50
[2018-04-02 07:21] VITALS: BP 91/52
[2018-04-02 08:51] LABS: CHLORIDE 111 MEQ/L (99-109); GFR ESTIMATE (CALCULATED) 28 mL/min/; POTASSIUM 3.6 MEQ/L (3.7-5.4); SODIUM 138 MEQ/L (136-147); UREA NITROGEN (BUN) 22 mg/dL (9-23)
[2018-04-02 08:54] LABS: CREATININE 2.3 MG/DL (0.6-1.3); GLUCOSE 97 mg/dL (70-99)
[2018-04-02 12:00] VITALS: BP 129/69
[2018-04-02 19:43] VITALS: BP 99/54
[2018-04-03] VITALS (20 sets, daily range): BP systolic 18–127; BP diastolic 48–102
[2018-04-03 08:17] LABS: BICARBONATE 19.7 mEq/L (22-26); CARBOXY HGB 1.8 % (0-5); COMMENTS - BLOOD GASES A+C+; DEVICE NC; METHEMOGLOBIN 1.4 % (0-1.5); O2 FLOW 5 L/MIN; PCO2 34 mm Hg (35-45); PO2 57 mm Hg (80-100); SITE LR; TOTAL RESP RATE 22 resp/min; pH 7.37 (7.35-7.45)
[2018-04-03 12:04] LABS: CHLORIDE 101 MEQ/L (99-109); MAGNESIUM 1.8 mg/dl (1.3-2.7); PHOSPHORUS 3.3 mg/dL (2.5-4.9)
[2018-04-03 12:05] LABS: CREATININE 2.8 MG/DL (0.6-1.3); GFR ESTIMATE (CALCULATED) 23 mL/min/; GLUCOSE 269 mg/dL (70-99); SODIUM 129 MEQ/L (136-147); UREA NITROGEN (BUN) 37 mg/dL (9-23)
[2018-04-03 17:18] LABS: CHLORIDE 102 MEQ/L (99-109); CREATININE 2.8 MG/DL (0.6-1.3); GFR ESTIMATE (CALCULATED) 23 mL/min/; GLUCOSE 174 mg/dL (70-99); POTASSIUM 4.2 MEQ/L (3.7-5.4); SODIUM 129 MEQ/L (136-147); UREA NITROGEN (BUN) 36 mg/dL (9-23)
[2018-04-04] VITALS (14 sets, daily range): BP systolic 98–152; BP diastolic 61–885
[2018-04-04 05:25] LABS: CHLORIDE 107 mEq/L (99-109); POTASSIUM 3.9 mEq/L (3.7-5.4); SODIUM 135 mEq/L (136-147)
[2018-04-04 05:31] LABS: GFR ESTIMATE (CALCULATED) 28 mL/min/
[2018-04-04 05:32] LABS: UREA NITROGEN (BUN) 36 mg/dL (9-23)
[2018-04-04 05:38] LABS: CREATININE 2.3 mg/dL (0.6-1.3); GLUCOSE 45 mg/dL (70-99)
[2018-04-05 00:55] VITALS: BP 149/75
[2018-04-05 04:16] VITALS: BP 157/74
[2018-04-05 06:10] LABS: HEMATOCRIT 31.9 % (36.0-46.0); MCH 25.7 PG (29.0-34.0); MCHC 31.3 G/DL (30.0-36.0); PLATELET COUNT 196 K/uL (156-360); RBC DIS.WIDTH-CV 14.6 % (11.8-14.6); RBC DIS.WIDTH-SD 43.5 % (39-53); RED BLOOD COUNT 3.89 M/uL (3.80-5.20); WHITE BLOOD COUNT 9.9 K/uL (4.1-10.2)
[2018-04-05 06:32] LABS: CHLORIDE 111 MEQ/L (99-109); MAGNESIUM 1.8 mg/dl (1.3-2.7); POTASSIUM 4.2 MEQ/L (3.7-5.4); UREA NITROGEN (BUN) 23 mg/dL (9-23)
[2018-04-05 06:33] LABS: CREATININE 1.8 MG/DL (0.6-1.3); GFR ESTIMATE (CALCULATED) 38 mL/min/; GLUCOSE 139 mg/dL (70-99); SODIUM 143 MEQ/L (136-147)
[2018-04-05 07:38] VITALS: BP 188/88
[2018-04-05 09:51] VITALS: BP 159/74
[2018-04-05 11:28] VITALS: BP 139/73
[2018-04-05 16:02] VITALS: BP 134/83
[2018-04-06 00:28] VITALS: BP 121/62
[2018-04-06 07:25] VITALS: BP 137/74
[2018-04-06 09:14] LABS: CHLORIDE 104 MEQ/L (99-109); CREATININE 1.4 MG/DL (0.6-1.3); GFR ESTIMATE (CALCULATED) 50 mL/min/; POTASSIUM 3.9 MEQ/L (3.7-5.4); SODIUM 136 MEQ/L (136-147); UREA NITROGEN (BUN) 18 mg/dL (9-23)
[2018-04-06 09:18] LABS: GLUCOSE 89 mg/dL (70-99)
[2018-04-06 11:40] VITALS: BP 136/72
[2018-04-06 15:55] VITALS: BP 119/61
[2018-04-06 22:09] VITALS: BP 142/81
[2018-04-07 00:18] VITALS: BP 122/60
[2018-04-07 07:45] VITALS: BP 131/74
[2018-04-07] MEDS ORDERED: MIRTAZAPINE15 MG PO (13:20)
[2018-04-07] MEDS ORDERED: METOCLOPRAMIDE10 MG PO (13:20)
[2018-04-07 16:38] VITALS: BP 133/69
== END 2018-04-07 17:28 | disposition home or self-care (01) | DRG 392 ==
LOC: EME 13:08 → 5SOUTH 17:00 → EDOF 17:00 → ENRESERV 17:01 → 5SOUTH 20:08 → ENRESERV 04-03 08:27 → 5SOUTH 04-03 08:28 → ENRESERV 04-03 08:34 → 4WEST 04-03 08:47 → ENRESERV 04-04 16:56 → 2EASTP 04-04 19:07
PROVIDERS: Emergency Medicine; Hospitalist; Internal Medicine; Internal Medicine Critical Care Medicine; Physician Assistant Medical
PROC: 02HV33Z Insertion of Infusion Device into Superior Vena Cava, Percutaneous Approach (ICD-10-PCS; principal; 2018-04-07)
DX: R10.9 Unspecified abdominal pain (principal); K59.00 Constipation, unspecified; K31.84 Gastroparesis; I10 Essential (primary) hypertension; E11.65 Type 2 diabetes mellitus with hyperglycemia; E87.6 Hypokalemia; E11.42 Type 2 diabetes mellitus with diabetic polyneuropathy; K29.90 Gastroduodenitis, unspecified, without bleeding; E11.43 Type 2 diabetes mellitus with diabetic autonomic (poly)neuropathy; R11.2 Nausea with vomiting, unspecified; K42.9 Umbilical hernia without obstruction or gangrene; R78.5 Finding of other psychotropic drug in blood; I16.0 Hypertensive urgency; F41.9 Anxiety disorder, unspecified; F32.9 Major depressive disorder, single episode, unspecified; Z79.4 Long term (current) use of insulin; E78.5 Hyperlipidemia, unspecified; E78.00 Pure hypercholesterolemia, unspecified; R33.9 Retention of urine, unspecified; K29.70 Gastritis, unspecified, without bleeding; K29.80 Duodenitis without bleeding; K21.9 Gastro-esophageal reflux disease without esophagitis; Z68.1 Body mass index [BMI] 19.9 or less, adult; I12.9 Hypertensive chronic kidney disease with stage 1 through stage 4 chronic kidney disease, or unspecified chronic kidney disease; E11.22 Type 2 diabetes mellitus with diabetic chronic kidney disease; N18.3 Chronic kidney disease, stage 3 (moderate); Z87.440 Personal history of urinary (tract) infections; Z74.01 Bed confinement status; Z83.3 Family history of diabetes mellitus; Z90.710 Acquired absence of both cervix and uterus; I95.9 Hypotension, unspecified
CPT/HCPCS: 36600; 71045; 74176; 80048; 80048 91; 80053; 81003; 82010; 82803; 82948; 83036; 83605; 83690; 83735; 83930; 84100; 84484; 84702; 84999; 85027; 87641; 93005; 94760; 94799; 99281; 99285; C1751; C9113; J0360; J1200; J1630; J1644; J1815; J2405; J2765; J3010; J3480; J7030; J7040; J7120

== ENCOUNTER 2018-04-11 00:59 | Emergency (ER) | payer OTHER ==
[~2018-04-11] VITALS: Ht 152.4 cm; Wt 61.7 kg
[~2018-04-11 00:59] MED LIST changes: +METOCLOPRAMIDE10 MG PO; +MIRTAZAPINE15 MG PO
[2018-04-11 01:41] LABS: HEMATOCRIT 36.6 % (36.0-46.0); HEMOGLOBIN 11.9 G/DL (11.9-15.5); MCH 26.2 PG (29.0-34.0); MCHC 32.5 G/DL (30.0-36.0); MCV 80.4 FL (83-99); RBC DIS.WIDTH-CV 14.6 % (11.8-14.6); RBC DIS.WIDTH-SD 42.6 % (39-53); RED BLOOD COUNT 4.55 M/uL (3.80-5.20); WHITE BLOOD COUNT 11.4 K/uL (4.1-10.2)
[2018-04-11 01:43] LABS: CARBON DIOXIDE (BICARBONATE) 29.9 MEQ/L (20-31)
[2018-04-11 01:54] LABS: ALBUMIN 2.7 g/dL (3.2-4.8)
[2018-04-11 01:55] LABS: CHLORIDE 103 mEq/L (99-109); SODIUM 139 mEq/L (136-147)
[2018-04-11 01:57] LABS: GLUCOSE 314 mg/dL (70-99); TOTAL PROTEIN 6.1 g/dL (6.4-8.3)
[2018-04-11 01:59] LABS: TOTAL BILIRUBIN 0.4 mg/dL (0.0-1.0)
[2018-04-11 02:00] LABS: ALKALINE PHOSPHATASE 59 IU/L (3-129)
[2018-04-11 02:01] LABS: CREATININE 1.5 mg/dL (0.6-1.3); GFR ESTIMATE (CALCULATED) 46 mL/min/
[2018-04-11 02:02] LABS: AST (GOT) 12 IU/L (2-34); UREA NITROGEN (BUN) 13 mg/dL (9-23)
[2018-04-11 02:03] LABS: ALT (GPT) 7 IU/L (3-49)
[2018-04-11 02:04] LABS: LIPASE 7 U/L (1.0-51.0)
[2018-04-11 02:37] LABS: PLAT.SUFFICIENCY ADEQUATE; PLATELET COUNT 193 K/uL (156-360)
[2018-04-11 03:50] LABS: APPEARANCE CLEAR ((CLEAR)); BILIRUBIN NEGATIVE; BLOOD NEGATIVE; COLOR YELLOW ((YELLOW)); GLUCOSE (STRIP) >=500; KETONES 20; LEUKOCYTES NEGATIVE; NITRITE NEGATIVE; PROTEIN (STRIP) >=500; SPECIFIC GRAVITY 1.021 (1.000-1.030); UROBILINOGEN 0.2 MG/DL (0.2-1.0)
[2018-04-11 04:11] LABS: BACTERIA NONE SEEN /HPF; EPITHELIAL CELLS NONE SEEN /HPF; HYALINE CASTS 0-5 /LPF; MUCUS NONE SEEN /LPF; RED BLOOD CELLS 0-5 /HPF (0-5); UCUL ADDED? NO; WHITE BLOOD CELLS 0-5 /HPF (0-5)
[2018-04-11] MEDS ORDERED: MIRALAX17 GM PO (04:47)
[2018-04-11] MEDS ORDERED: ZOFRAN4 MG PO (04:53)
[2018-04-11 05:30] VITALS: BP 192/90
== END 2018-04-11 05:19 | disposition home or self-care (01) ==
LOC: EME 00:59
PROVIDERS: Emergency Medicine
DX: K52.9 Noninfective gastroenteritis and colitis, unspecified (principal); R73.9 Hyperglycemia, unspecified; N20.0 Calculus of kidney; K42.9 Umbilical hernia without obstruction or gangrene; I10 Essential (primary) hypertension; Z90.710 Acquired absence of both cervix and uterus
CPT/HCPCS: 74176; 80053; 81003; 82010; 82803; 83605; 83690; 84702; 85027; 99281; 99285; J2405; J3010; J7030

== ENCOUNTER 2018-04-12 09:42 | Inpatient (IN) | payer OTHER ==
[~2018-04-12] VITALS: Ht 154.9 cm; Wt 62.9 kg
[2018-04-12 10:16] LABS: BASOPHIL (%) 0.5 % (0-1); BASOPHIL COUNT 0.1 K/uL (0-0.1); EOSINOPHIL (%) 1.2 % (0-5); EOSINOPHIL COUNT 0.2 K/uL (0-0.3); HEMATOCRIT 39.4 % (36.0-46.0); IMMATURE GRANULOCYTE (%) 0.5 % (0.0-0.7); LYMPHOCYTE (%) 20.9 % (15-42); LYMPHOCYTE COUNT 3.5 K/uL (1.0-2.8); MCH 26.9 PG (29.0-34.0); MCV 81.4 FL (83-99); MONOCYTE (%) 8.1 % (3-12); MONOCYTE COUNT 1.4 K/uL (0-0.8); NEUTROPHIL (%) 68.8 % (45-76); NEUTROPHIL COUNT 11.5 K/uL (1.8-6.4); PLATELET COUNT 235 K/uL (156-360); RBC DIS.WIDTH-CV 14.6 % (11.8-14.6); RBC DIS.WIDTH-SD 42.9 % (39-53); RED BLOOD COUNT 4.84 M/uL (3.80-5.20); WHITE BLOOD COUNT 16.7 K/uL (4.1-10.2)
[2018-04-12 10:18] LABS: CARBON DIOXIDE (BICARBONATE) 28.1 MEQ/L (20-31)
[2018-04-12 10:25] LABS: ALBUMIN 2.8 g/dL (3.2-4.8); CHLORIDE 104 mEq/L (99-109); POTASSIUM 3.1 mEq/L (3.7-5.4); SODIUM 142 mEq/L (136-147)
[2018-04-12 10:28] LABS: GLUCOSE 76 mg/dL (70-99)
[2018-04-12 10:29] LABS: TOTAL BILIRUBIN 0.4 mg/dL (0.0-1.0)
[2018-04-12 10:31] LABS: ALKALINE PHOSPHATASE 61 IU/L (3-129); CREATININE 1.6 mg/dL (0.6-1.3); GFR ESTIMATE (CALCULATED) 43 mL/min/
[2018-04-12 10:32] LABS: UREA NITROGEN (BUN) 15 mg/dL (9-23)
[2018-04-12 10:34] LABS: ALT (GPT) 9 IU/L (3-49); AST (GOT) 23 IU/L (2-34); LIPASE 7 U/L (1.0-51.0)
[2018-04-12 20:19] VITALS: BP 176/81
[2018-04-13] VITALS (8 sets, daily range): BP systolic 142–203; BP diastolic 77–99
[2018-04-13 09:11] LABS: HEMATOCRIT 34.3 % (36.0-46.0); MCH 26.1 PG (29.0-34.0); MCHC 31.8 G/DL (30.0-36.0); MCV 82.3 FL (83-99); RBC DIS.WIDTH-CV 14.5 % (11.8-14.6); RBC DIS.WIDTH-SD 43.1 % (39-53); RED BLOOD COUNT 4.17 M/uL (3.80-5.20); WHITE BLOOD COUNT 10.8 K/uL (4.1-10.2)
[2018-04-13 09:12] LABS: HEMOGLOBIN 10.9 G/DL (11.9-15.5)
[2018-04-13 09:31] LABS: CHLORIDE 110 MEQ/L (99-109); CREATININE 1.4 MG/DL (0.6-1.3); GFR ESTIMATE (CALCULATED) 50 mL/min/; GLUCOSE 89 mg/dL (70-99); POTASSIUM 2.9 MEQ/L (3.7-5.4); SODIUM 140 MEQ/L (136-147); UREA NITROGEN (BUN) 14 mg/dL (9-23)
[2018-04-13 09:33] LABS: PLAT.SUFFICIENCY ADEQUATE; PLATELET COUNT 164 K/uL (156-360)
[2018-04-14] VITALS (8 sets, daily range): BP systolic 154–205; BP diastolic 72–96
[2018-04-14 12:19] LABS: BASOPHIL (%) 0.6 % (0-1); BASOPHIL COUNT 0.1 K/uL (0-0.1); EOSINOPHIL (%) 2.1 % (0-5); EOSINOPHIL COUNT 0.2 K/uL (0-0.3); HEMOGLOBIN 11.2 G/DL (11.9-15.5); IMMATURE GRANULOCYTE (%) 0.5 % (0.0-0.7); LYMPHOCYTE (%) 25.4 % (15-42); LYMPHOCYTE COUNT 2.5 K/uL (1.0-2.8); MCH 25.8 PG (29.0-34.0); MCHC 30.3 G/DL (30.0-36.0); MCV 85.3 FL (83-99); MONOCYTE (%) 7.9 % (3-12); MONOCYTE COUNT 0.8 K/uL (0-0.8); NEUTROPHIL (%) 63.5 % (45-76); NEUTROPHIL COUNT 6.1 K/uL (1.8-6.4); RBC DIS.WIDTH-CV 14.6 % (11.8-14.6); RBC DIS.WIDTH-SD 45.6 % (39-53); RED BLOOD COUNT 4.34 M/uL (3.80-5.20); WHITE BLOOD COUNT 9.6 K/uL (4.1-10.2)
[2018-04-14 12:55] LABS: HEMATOLOGY COMMENT 1 SN; PLAT.SUFFICIENCY DECREASED; PLATELET COUNT 140 K/uL (156-360)
[2018-04-14 13:09] LABS: CHLORIDE 111 MEQ/L (99-109); CREATININE 1.2 MG/DL (0.6-1.3); GFR ESTIMATE (CALCULATED) > 59 mL/min/; SODIUM 141 MEQ/L (136-147); UREA NITROGEN (BUN) 10 mg/dL (9-23)
[2018-04-14 13:11] LABS: GLUCOSE 149 mg/dL (70-99); POTASSIUM 3.8 MEQ/L (3.7-5.4)
[2018-04-15 03:15] VITALS: BP 193/95
[2018-04-15 12:00] VITALS: BP 117/70
[2018-04-15 14:26] VITALS: BP 184/94; BP 184/941
[2018-04-15 20:50] VITALS: BP 141/67
[2018-04-15 23:29] VITALS: BP 175/88
[2018-04-16 23:10] VITALS: BP 198/95
[2018-04-17 08:56] VITALS: BP 183/98
[2018-04-17 09:46] VITALS: BP 125/72
[2018-04-17 16:31] VITALS: BP 162/96
[2018-04-17 19:50] VITALS: BP 188/98
[2018-04-18] VITALS (8 sets, daily range): BP systolic 150–195; BP diastolic 74–93
[2018-04-19 00:08] VITALS: BP 191/92
[2018-04-19 04:17] VITALS: BP 168/77
[2018-04-19 07:51] VITALS: BP 149/70
[2018-04-19] MEDS ORDERED: NOVOLOG 10100 UNITS/ SC (12:32)
[2018-04-19] MEDS ORDERED: DULOXETINE HCL60 MG PO (12:36)
== END 2018-04-19 17:50 | disposition home or self-care (01) | DRG 392 ==
LOC: EME 09:42 → 2EAST 16:29 → EDOF 16:29 → ENRESERV 16:31 → 2EAST 18:24
PROVIDERS: Emergency Medicine; Hospitalist; Student in an Organized Health Care Education/Training Program
DX: K29.60 Other gastritis without bleeding (principal); E11.22 Type 2 diabetes mellitus with diabetic chronic kidney disease; K59.00 Constipation, unspecified; E87.6 Hypokalemia; I12.9 Hypertensive chronic kidney disease with stage 1 through stage 4 chronic kidney disease, or unspecified chronic kidney disease; K21.9 Gastro-esophageal reflux disease without esophagitis; N18.3 Chronic kidney disease, stage 3 (moderate); E78.5 Hyperlipidemia, unspecified; F41.9 Anxiety disorder, unspecified; K62.1 Rectal polyp; F32.9 Major depressive disorder, single episode, unspecified; Z91.14 Patient's other noncompliance with medication regimen; Z76.5 Malingerer [conscious simulation]; Z79.4 Long term (current) use of insulin; K29.80 Duodenitis without bleeding; R11.2 Nausea with vomiting, unspecified
CPT/HCPCS: 71045; 74018; 74176; 76000; 80048; 80053; 80069; 80306 90; 81003; 82010; 82803; 82948; 83605; 83690; 84132; 84443; 84702; 85025; 85027; 88305; 88342 TC; 99281; 99285; G0378; J0360; J1644; J1815; J2250; J2405; J3010; J3480; J7030

== ENCOUNTER 2018-04-19 17:13 | Inpatient (IN) | payer OTHER ==
[~2018-04-19] VITALS: Ht 167.6 cm; Wt 70.6 kg
[2018-04-19 18:00] VITALS: BP 131/70
[2018-04-19 18:21] VITALS: BP 131/70
[2018-04-20 07:53] VITALS: BP 125/72
[2018-04-20 16:34] VITALS: BP 118/56
[2018-04-21 07:47] VITALS: BP 151/76
[2018-04-21 17:07] VITALS: BP 142/62
[2018-04-22 08:02] VITALS: BP 129/82
[2018-04-22 16:09] VITALS: BP 131/70
[2018-04-23 07:52] VITALS: BP 130/66
[2018-04-23 16:26] VITALS: BP 151/73
[2018-04-24 09:24] VITALS: BP 137/67
[2018-04-24 16:53] VITALS: BP 110/58
[2018-04-24 22:56] VITALS: BP 185/90
[2018-04-25 09:20] VITALS: BP 114/55
[2018-04-25 13:07] LABS: BASOPHIL (%) 0.5 % (0-1); BASOPHIL COUNT 0.1 K/uL (0-0.1); EOSINOPHIL (%) 2.8 % (0-5); EOSINOPHIL COUNT 0.3 K/uL (0-0.3); HEMATOCRIT 35.7 % (36.0-46.0); HEMOGLOBIN 11.1 G/DL (11.9-15.5); IMMATURE GRANULOCYTE (%) 0.6 % (0.0-0.7); LYMPHOCYTE (%) 29.1 % (15-42); LYMPHOCYTE COUNT 3.2 K/uL (1.0-2.8); MCH 25.8 PG (29.0-34.0); MCHC 31.1 G/DL (30.0-36.0); MCV 82.8 FL (83-99); MONOCYTE COUNT 0.9 K/uL (0-0.8); NEUTROPHIL COUNT 6.4 K/uL (1.8-6.4); RBC DIS.WIDTH-CV 14.6 % (11.8-14.6); RBC DIS.WIDTH-SD 44.6 % (39-53); RED BLOOD COUNT 4.31 M/uL (3.80-5.20); WHITE BLOOD COUNT 10.9 K/uL (4.1-10.2)
[2018-04-25 13:29] LABS: ALBUMIN 2.3 G/DL (3.2-4.8); ALKALINE PHOSPHATASE 42 IU/L (3-129); ALT (GPT) 6 IU/L (3-49); AST (GOT) 10 IU/L (2-34); CHLORIDE 108 MEQ/L (99-109); CREATININE 1.7 MG/DL (0.6-1.3); GFR ESTIMATE (CALCULATED) 40 mL/min/; GLUCOSE 285 mg/dL (70-99); PLATELET COUNT 214 K/uL (156-360); POTASSIUM 3.8 MEQ/L (3.7-5.4); SODIUM 137 MEQ/L (136-147); TOTAL BILIRUBIN 0.2 MG/DL (0.0-1.0); TOTAL PROTEIN 5.1 G/DL (6.4-8.3); UREA NITROGEN (BUN) 29 mg/dL (9-23)
[2018-04-26 07:59] VITALS: BP 125/61
[2018-04-26 16:17] VITALS: BP 164/77
[2018-04-26 18:05] LABS: APPEARANCE CLOUDY ((CLEAR)); BILIRUBIN NEGATIVE; BLOOD NEGATIVE; COLOR YELLOW ((YELLOW)); GLUCOSE (STRIP) 150; KETONES NEGATIVE; LEUKOCYTES LARGE; NITRITE NEGATIVE; PROTEIN (STRIP) 100; SPECIFIC GRAVITY 1.009 (1.000-1.030); UROBILINOGEN 0.2 MG/DL (0.2-1.0)
[2018-04-26 18:45] LABS: UR CREATININE CONCENTRATION 42.4 MG/DL
[2018-04-26 19:57] LABS: RED BLOOD CELLS 0-5 /HPF (0-5); WHITE BLOOD CELLS 40-50 /HPF (0-5)
[2018-04-26 19:58] LABS: BACTERIA 3+ /HPF; EPITHELIAL CELLS 1+ /HPF; MUCUS RARE /LPF; UCUL ADDED? YES
[2018-04-26 19:59] LABS: HYALINE CASTS 0-5 /LPF
[2018-04-27 07:40] VITALS: BP 143/72
[2018-04-27] MEDS ORDERED: VENLAFAXINE HCL75 M3 PO (09:39)
[2018-04-27] MEDS ORDERED: MIRTAZAPINE30 MG PO (09:39)
[2018-04-27] MEDS ORDERED: FUROSEMIDE40 MG PO (10:38)
[2018-04-27] MEDS ORDERED: CALTRATE 600 +1 EAC1 PO (15:59)
[2018-04-27] MEDS ORDERED: CYMBALTA60 MG PO (16:01)
[2018-04-27] MEDS ORDERED: MIRALAX17 GM PO (16:04)
[2018-04-27] MEDS ORDERED: NOVOLOG MI100 UNIT/2 SC ×2 (16:06→16:07)
[2018-04-27] MEDS ORDERED: ROXICODONE5 MG PO (16:09)
[2018-04-27] MEDS ORDERED: TRAZODONE HCL50 MG PO (16:11)
== END 2018-04-27 14:01 | DRG 885 ==
LOC: 1WEST 17:13 → ENRESERV 17:15 → 1WEST 17:56
PROVIDERS: Physician Assistant; Psychiatry & Neurology Psychiatry
DX: F33.2 Major depressive disorder, recurrent severe without psychotic features (principal); F60.9 Personality disorder, unspecified; Z91.19 Patient's noncompliance with other medical treatment and regimen; E11.22 Type 2 diabetes mellitus with diabetic chronic kidney disease; E11.21 Type 2 diabetes mellitus with diabetic nephropathy; N04.9 Nephrotic syndrome with unspecified morphologic changes; I12.9 Hypertensive chronic kidney disease with stage 1 through stage 4 chronic kidney disease, or unspecified chronic kidney disease; N18.3 Chronic kidney disease, stage 3 (moderate); K29.60 Other gastritis without bleeding
CPT/HCPCS: 80048; 80053; 81003; 82040; 82570; 82948; 83880; 84156; 85025; 87086; 89190; 97150 GO; 97165 GO; J1815

== ENCOUNTER 2018-04-27 12:46 | Inpatient (IN) | payer OTHER ==
[~2018-04-27 12:46] MED LIST changes: +FUROSEMIDE40 MG PO
[2018-04-27 14:32] LABS: HEMATOCRIT 32.2 % (36.0-46.0); HEMOGLOBIN 10.3 G/DL (11.9-15.5); MCH 26.5 PG (29.0-34.0); MCV 82.8 FL (83-99); PLATELET COUNT 221 K/uL (156-360); RBC DIS.WIDTH-CV 14.5 % (11.8-14.6); RBC DIS.WIDTH-SD 43.5 % (39-53); RED BLOOD COUNT 3.89 M/uL (3.80-5.20); WHITE BLOOD COUNT 9.8 K/uL (4.1-10.2)
[2018-04-27 14:43] VITALS: BP 137/67
[2018-04-27 14:57] LABS: CHLORIDE 107 MEQ/L (99-109); CREATININE 1.7 MG/DL (0.6-1.3); GFR ESTIMATE (CALCULATED) 40 mL/min/; GLUCOSE 204 mg/dL (70-99); POTASSIUM 3.4 MEQ/L (3.7-5.4); SODIUM 140 MEQ/L (136-147); UREA NITROGEN (BUN) 27 mg/dL (9-23)
[2018-04-27] MEDS ORDERED: CALTRATE 600 +1 EAC1 PO (15:59)
[2018-04-27] MEDS ORDERED: CYMBALTA60 MG PO (16:01)
[2018-04-27] MEDS ORDERED: MIRALAX17 GM PO (16:04)
[2018-04-27] MEDS ORDERED: NOVOLOG MI100 UNIT/2 SC ×2 (16:06→16:07)
[2018-04-27] MEDS ORDERED: ROXICODONE5 MG PO (16:09)
[2018-04-27] MEDS ORDERED: TRAZODONE HCL50 MG PO (16:11)
[2018-04-27 18:53] VITALS: BP 160/74
[2018-04-27 23:14] VITALS: BP 139/68
[2018-04-28 03:37] VITALS: BP 142/67
[2018-04-28 06:41] LABS: CHLORIDE 108 MEQ/L (99-109); CREATININE 1.6 MG/DL (0.6-1.3); GFR ESTIMATE (CALCULATED) 43 mL/min/; POTASSIUM 3.5 MEQ/L (3.7-5.4); SODIUM 142 MEQ/L (136-147); UREA NITROGEN (BUN) 26 mg/dL (9-23)
[2018-04-28 06:45] LABS: GLUCOSE 48 mg/dL (70-99)
[2018-04-28 07:23] VITALS: BP 137/63
[2018-04-28 10:16] LABS: HEMOGLOBIN A1c (GLYCOHEMOGLOB) 9.5 % (Below 5.7)
[2018-04-28 11:19] VITALS: BP 131/66
[2018-04-28 16:30] VITALS: BP 133/64
[2018-04-29 00:29] VITALS: BP 132/65
[2018-04-29 06:07] LABS: BASOPHIL (%) 0.5 % (0-1); EOSINOPHIL (%) 2.7 % (0-5); EOSINOPHIL COUNT 0.2 K/uL (0-0.3); HEMATOCRIT 30.8 % (36.0-46.0); HEMOGLOBIN 9.6 G/DL (11.9-15.5); IMMATURE GRANULOCYTE (%) 1.1 % (0.0-0.7); LYMPHOCYTE COUNT 3.8 K/uL (1.0-2.8); MCH 25.8 PG (29.0-34.0); MCHC 31.2 G/DL (30.0-36.0); MCV 82.8 FL (83-99); MONOCYTE (%) 9.7 % (3-12); MONOCYTE COUNT 0.8 K/uL (0-0.8); PLATELET COUNT 192 K/uL (156-360); RBC DIS.WIDTH-CV 14.6 % (11.8-14.6); RBC DIS.WIDTH-SD 43.8 % (39-53); RED BLOOD COUNT 3.72 M/uL (3.80-5.20); WHITE BLOOD COUNT 7.9 K/uL (4.1-10.2)
[2018-04-29 06:39] LABS: ALBUMIN 1.8 G/DL (3.2-4.8); ALKALINE PHOSPHATASE 45 IU/L (3-129); ALT (GPT) 5 IU/L (3-49); AST (GOT) 8 IU/L (2-34); CHLORIDE 106 MEQ/L (99-109); CREATININE 1.6 MG/DL (0.6-1.3); GFR ESTIMATE (CALCULATED) 43 mL/min/; GLUCOSE 196 mg/dL (70-99); MAGNESIUM 1.6 mg/dl (1.3-2.7); PHOSPHORUS 4.2 mg/dL (2.5-4.9); POTASSIUM 3.5 MEQ/L (3.7-5.4); SODIUM 139 MEQ/L (136-147); TOTAL BILIRUBIN 0.1 MG/DL (0.0-1.0); TOTAL PROTEIN 4.6 G/DL (6.4-8.3); UREA NITROGEN (BUN) 24 mg/dL (9-23)
[2018-04-29 07:20] VITALS: BP 168/80
[2018-04-29 14:00] VITALS: BP 165/88
[2018-04-29] MEDS ORDERED: ATORVASTATIN CA40 MG PO (16:02)
[2018-04-29] MEDS ORDERED: VENLAFAXINE HCL75 M3 PO (16:02)
[2018-04-29] MEDS ORDERED: NIFEDIPINE ER30 MG PO (16:02)
[2018-04-29] MEDS ORDERED: BUMETANIDE1 MG PO (16:02)
[2018-04-29] MEDS ORDERED: MIRTAZAPINE30 MG PO (16:02)
[2018-04-29] MEDS ORDERED: LOSARTAN POTASS25 MG PO (16:02)
[2018-04-29] MEDS ORDERED: SPIRONOLACTONE25 MG PO (16:02)
[2018-04-29] MEDS ORDERED: LYRICA50 MG PO (16:02)
[2018-04-29 16:10] VITALS: BP 186/84
[2018-04-30] VITALS: BP 160/77
[2018-04-30 07:29] VITALS: BP 143/67
[2018-04-30 16:03] VITALS: BP 138/81
== END 2018-04-30 17:24 | disposition home or self-care (01) | DRG 684 ==
LOC: 2EAST 12:46 → ENRESERV 12:48 → 5EAST 13:14 → ENRESERV 13:15 → 5EAST 13:22
PROVIDERS: Hospitalist; Internal Medicine; Internal Medicine Nephrology
DX: I12.9 Hypertensive chronic kidney disease with stage 1 through stage 4 chronic kidney disease, or unspecified chronic kidney disease (principal); N18.3 Chronic kidney disease, stage 3 (moderate); E11.22 Type 2 diabetes mellitus with diabetic chronic kidney disease; K29.70 Gastritis, unspecified, without bleeding; F32.9 Major depressive disorder, single episode, unspecified; E11.21 Type 2 diabetes mellitus with diabetic nephropathy; E11.65 Type 2 diabetes mellitus with hyperglycemia; Z79.4 Long term (current) use of insulin; E87.6 Hypokalemia; E78.5 Hyperlipidemia, unspecified; D50.9 Iron deficiency anemia, unspecified; Z79.899 Other long term (current) drug therapy; Z83.3 Family history of diabetes mellitus; K22.70 Barrett's esophagus without dysplasia; R60.1 Generalized edema
CPT/HCPCS: 80048; 80048 91; 80053; 82948; 83036; 83735; 84100; 85025; 85027; J1644; J1815; J1940

== ENCOUNTER 2018-07-22 11:52 | Day surgery (SDC) | payer OTHER ==
[~2018-07-22] VITALS: Ht 152.4 cm; Wt 71.2 kg
[~2018-07-22 11:52] MED LIST changes: +BUMETANIDE1 MG PO; +CALTRATE 600 +1 EAC1 PO; +CYMBALTA60 MG PO; +LIPITOR80 MG PO; +LOSARTAN POTASS25 MG PO; +LYRICA50 MG PO; +ROXICODONE5 MG PO; +SPIRONOLACTONE25 MG PO
[2018-07-22 12:15] VITALS: BP 182/93
[2018-07-22 16:37] VITALS: BP 149/70
[2018-07-22 17:35] VITALS: BP 157/75
[2018-07-22 19:11] VITALS: BP 173/77
== END 2018-07-22 19:30 | disposition home or self-care (01) ==
LOC: SDC 11:52
PROVIDERS: Ophthalmology
DX: E11.3531 Type 2 diabetes mellitus with proliferative diabetic retinopathy with traction retinal detachment not involving the macula, right eye (principal); H43.11 Vitreous hemorrhage, right eye; E11.42 Type 2 diabetes mellitus with diabetic polyneuropathy; E11.65 Type 2 diabetes mellitus with hyperglycemia; E11.21 Type 2 diabetes mellitus with diabetic nephropathy; I10 Essential (primary) hypertension; K21.9 Gastro-esophageal reflux disease without esophagitis; E78.5 Hyperlipidemia, unspecified; F41.9 Anxiety disorder, unspecified; F32.9 Major depressive disorder, single episode, unspecified; Z79.4 Long term (current) use of insulin; Z88.0 Allergy status to penicillin
CPT/HCPCS: 82948; J0690; J0713; J1580; J2250; J2405; J3010; J3300